=== PATIENT | male | born 1945 | race Caucasian/White ===

== ENCOUNTER 2016-10-26 10:06 | Observation (INO) | payer MEDICARE, OTHER ==
[2016-10-26] VITALS (7 sets, daily range): BP systolic 130–189; BP diastolic 78–90; PULSE 86–94; RESP 12–18; TEMP 97.8–98.1; O2SAT 96–100
[~2016-10-26] VITALS: Ht 172.7 cm; Wt 80.0 kg
[~2016-10-26 10:06] MED LIST: AMIT25TA9 PO; CLON1 PO; LEVEMIR SQ; LIPI40TA PO; METF500T PO; METO-338 PO; NOVOLOGP2 SQ; PLAV75TA29 PO; QUET1TAB10 PO; QUET1TAB9 PO; SERO100T PO; SERO300T PO; Simvastatin PO
--- NOTE | 2016-10-26 10:39 | PD ---
HPI Chief Complaint: Neuro Symptoms/ Deficits Time Seen by Provider: 10:38 Travel History International Travel<30 days: No Contact w/Intl Traveler<30days: No Traveled to known affect area: No History of Present Illness HPI 71-year-old male came to the emergency room brought by his daughter and after he became agitated and ran out of his house screaming "help help". He ended up in his neighbor's yard and his came running after him and called 911. When the police arrived and saw him they recommended that she should take him to the emergency room since he would be more cooperative that way. Patient has history of dementia and has done episodes like this multiple times. In fact he was brought in the past as Rae act as well. He was in the emergency room about 12 days ago for something similar. is saying that his episodes of these kind are getting more and more frequent lately. She has discussed these with his primary care and she was told that there is a new drug that would be coming in the market by the end of this year or beginning next there and he would be a candidate for that which should make his condition better. Patient's vital signs have been stable in the ER. He is cooperative and does not recall any of these events. His bedside blood glucose was 510. As per the he did not take any of his morning medications including his insulin and metformin. PENDING SALE TO [facility] Past Medical History Narrative Medical List of his past medical history is reviewed from the nursing note. Hx Anticoagulant Therapy: Yes (PLAVIX) Arthritis: Yes Anxiety: Yes Depression: Yes Cardiovascular Problems: Yes High Cholesterol: Yes Dementia: Yes Diabetes: Yes Patient Takes Glucophage: Yes Diminished Hearing: Yes (diminished) Hypertension: Yes Neurologic: Yes Psychiatric: Yes Tetanus Vaccination: < 5 Years Past Surgical History Joint Replacement: Yes (R SHOULDER SX) Social History Alcohol Use: No (QUIET) Tobacco Use: No Substance Use: No Allergies-Medications (Allergen,Severity, Reaction): Coded Allergies: Morphine (Verified Allergy, Unknown, SHAKING, 10/26/16) Comments List of his allergies reviewed from the nursing note. Reported Meds & Prescriptions Reported Meds & Active Scripts Active [Simvastatin ] 1 EA Ea 40 Mg PO HS Lopressor (Metoprolol Tartrate) 100 Mg Tab 100 Mg PO DAILY Plavix (Clopidogrel Bisulfate) 75 Mg Tab 75 Mg PO DAILY Klonopin (Clonazepam) 1 Mg Tab 1 Mg PO HS Levemir Inj (Insulin Detemir) 1,000 unit/ 10 ML Vial 7 Units SQ HS 30 Days Levemir Inj (Insulin Detemir) 1,000 unit/ 10 ML Vial 20 Units SQ DAILY 30 Days Reported Novolog Inj (Insulin Aspart) 1,000 Unit/10 Ml Vial 2-12 Units SQ ACHS Max dose at bedtime ( ) units; sugars less than 70,(0) units; sugars 150-199,(2) units; sugars 200-249,(4) units; sugars 250-299,(7) units; sugars 300-349,(10) units; sugars greater than 349,(12)units Amitriptyline (Amitriptyline HCl) 25 Mg Tab 25 Mg PO HS Seroquel (Quetiapine Fumarate) 300 Mg Tab 300 Mg PO HS Seroquel (Quetiapine Fumarate) 100 Mg Tab 100 Mg PO DAILY Metformin (Metformin HCl) 500 Mg Tab 500 Mg PO BIDPC With meals Narrative Medication List of his home medications reviewed from the nursing note. Review of Systems Except as stated in HPI: all other systems reviewed are Neg Physical Exam Narrative GENERAL: Awake, alert, elderly, no obvious distress, confused SKIN: Warm and dry. HEAD: Atraumatic. Normocephalic. EYES: Pupils equal and round. No scleral icterus. No injection or drainage. ENT: No nasal bleeding or discharge. Mucous membranes pink and moist. NECK: Trachea midline. No JVD. CARDIOVASCULAR: Regular rate and rhythm. No murmur appreciated. RESPIRATORY: No accessory muscle use. Clear to auscultation. Breath sounds equal bilaterally. GASTROINTESTINAL: Abdomen soft, non-tender, nondistended. Hepatic and splenic margins not palpable. MUSCULOSKELETAL: No obvious deformities. No clubbing. No cyanosis. No edema. NEUROLOGICAL: Awake and alert. Dementia. No obvious cranial nerve deficits. Motor grossly within normal limits. Normal speech. Disoriented in place and time. PSYCHIATRIC: Appropriate mood and affect; insight and judgment normal. Data Data Last Documented VS Orders Electrocardiogram (10/26/16 10:52) Alcohol (Ethanol) (10/26/16 10:52) Complete Blood Count With Diff (10/26/16 10:52) Comprehensive Metabolic Panel (10/26/16 10:52) Creatine Kinase (Cpk) (10/26/16 10:52) Prothrombin Time / Inr (Pt) (10/26/16 10:52) Act Partial Throm Time (Ptt) (10/26/16 10:52) Troponin I (10/26/16 10:52) Thyroid Stimulating Hormone (10/26/16 10:52) Urinalysis - C+S If Indicated (10/26/16 10:52) Chest, Single Ap (10/26/16 10:52) Ct Brain W/O Iv Contrast(Rout) (10/26/16 10:52) Blood Glucose (10/26/16 10:52) Ecg Monitoring (10/26/16 10:52) Iv Access Insert/Monitor (10/26/16 10:52) Oximetry (10/26/16 10:52) Sodium Chloride 0.9% Flush (Ns Flush) (10/26/16 11:00) ^ Straight Catheter (10/26/16 10:52) Sodium Chlor 0.9% 1000 Ml Inj (Ns 1000 M (10/26/16 11:15) Insulin Human Regular Inj (Novolin R Inj (10/26/16 11:15) Sodium Chlor 0.9% 1000 Ml Inj (Ns 1000 M (10/26/16 12:30) Metformin (Glucophage) (10/26/16 12:30) Place In Observation (10/26/16 ) Vital Signs (Adult) Q4H (10/26/16 12:29) Activity Oob With Assistance (10/26/16 12:29) Diet Diabetic (10/26/16 Lunch) Sodium Chlor 0.9% 1000 Ml Inj (Ns 1000 M (10/26/16 12:29) Sodium Chloride 0.9% Flush (Ns Flush) (10/26/16 12:30) Sodium Chloride 0.9% Flush (Ns Flush) (10/26/16 21:00) Acetaminophen (Tylenol) (10/26/16 12:30) Ondansetron Inj (Zofran Inj) (10/26/16 12:30) Docusate Sodium (Colace) (10/26/16 12:30) Basic Metabolic Panel (Bmp) (10/27/16 06:00) Complete Blood Count With Diff (10/27/16 06:00) Pt Request For Service (10/26/16 12:29) Case Management Consult (10/26/16 12:29) Enoxaparin Inj (Lovenox Inj) (10/26/16 14:00) Naloxone Inj (Narcan Inj) (10/26/16 12:30) Bedside Glucose GATITO.AC&HS&03 (10/26/16 12:29) ^ Blood Glucose Goal (Criteria (10/26/16 12:29) ^ Hypoglycemia 51 - 69 Mg/Dl (10/26/16 12:29) ^ Hypoglycemia 50 Mg/Dl Or < (10/26/16 12:29) ^ Notify Dr: Other (10/26/16 12:29) Dextrose 50% In Serafin (Vial) Inj (D50w (Vi (10/26/16 12:30) Glucagon Inj (Glucagon Inj) (10/26/16 12:30) Insulin Aspart Supplemtl Scale (Novolog (10/26/16 16:00) Admit Order (Ed Use Only) (10/26/16 12:36) Labs MDM Medical Decision Making Medical Screen Exam Complete: Yes Emergency Medical Condition: Yes Medical Record Reviewed: Yes Interpretation(s) Twelve-lead EKG was reviewed by me. Normal sinus rhythm, normal axis, nonspecific ST-T wave changes. Heart rate of 84 bpm. Differential Diagnosis TIA, UTI, pneumonia, electrolyte abnormalities, DKA Narrative Course 12:43 PM patient was given IV fluid bolus and 10 units of subcutaneous insulin. Blood glucose level was rechecked one hour later and it was 455. Ordered another liter of IV fluid bolus and patient's daily dose of metformin. Other than that the workup is essentially negative. Patient will be admitted for confusion/TIA and hyperglycemia. He would be a good candidate to be admitted to [facility] for the observation. I discussed this with the and she is okay with that decision. The hospitalist has accepted the patient. I also discussed with the regarding patient's long-term future plan and her comfort level of taking care of him especially doing his dementia flareup/ confusion/psychosis. Especially since the frequency has been increasing and patient is becoming a danger to himself. She understands and agrees regarding the urgency to have a meeting to discuss regarding this with patient's primary care. In my opinion family should start making plans and decision for long- term inpatient care for this gentleman. Procedures EKG Prior to Arrival: No Diagnosis Primary Impression: Hyperglycemia Additional Impressions: Dehydration Confusion TIA (transient ischemic attack) Qualified Code: G45.9 - Transient cerebral ischemia, unspecified type Dementia Qualified Code: F03.91 - Dementia with behavioral disturbance, unspecified dementia type Admitting Information Admitting Physician Requests: Observation Stu Souza MD Oct 26, 2016 10:39 Neutrophils # (Auto) 7.7 TH/MM3 Lymphocytes # (Auto) 1.1 TH/MM3 Monocytes # (Auto) 0.5 TH/MM3 Eosinophils # (Auto) 0.0 TH/MM3 Basophils # (Auto) 0.0 TH/MM3 CBC Comment DIFF FINAL Differential Comment Prothrombin Time 11.0 SEC Prothromb Time International 1.0 RATIO Ratio Activated Partial 31.0 SEC Thromboplast Time Urine Color LIGHT-YELLOW Urine Turbidity CLEAR Urine pH 5.0 Urine Specific [place] 1.011 Urine Protein NEG mg/dL Urine Glucose (UA) 1000 mg/dL Urine Ketones 10 mg/dL Urine Occult Blood NEG Urine Nitrite NEG Urine Bilirubin NEG Urine Urobilinogen LESS THAN 2.0 MG/DL Urine Leukocyte Esterase NEG Urine WBC LESS THAN 1 /hpf Urine Squamous Epithelial <1 /hpf Cells Microscopic Urinalysis Comment CATH-CULT NOT IND Sodium Level 129 MEQ/L Potassium Level 4.6 MEQ/L Chloride Level 95 MEQ/L Carbon Dioxide Level 22.2 MEQ/L Anion Gap 12 MEQ/L Blood Urea Nitrogen 22 MG/DL Creatinine 1.42 MG/DL Estimat Glomerular Filtration 49 ML/MIN Rate Random Glucose 463 MG/DL Calcium Level 9.5 MG/DL Total Bilirubin 0.5 MG/DL Aspartate Amino Transf 9 U/L (AST/SGOT) Alanine Aminotransferase 22 U/L (ALT/SGPT) Alkaline Phosphatase 100 U/L Total Creatine Kinase 50 U/L Troponin I LESS THAN 0.02 NG/ML Total Protein 8.0 GM/DL Albumin 4.0 GM/DL Thyroid Stimulating Hormone 1.940 uIU/ML 3rd Gen Ethyl Alcohol Level LESS THAN 3 MG/DL [facility] Medical Decision Making Medical Screen Exam Complete: Yes Emergency Medical Condition: Yes Medical Record Reviewed: Yes Interpretation(s) Twelve-lead EKG was reviewed by me. Normal sinus rhythm, normal axis, nonspecific ST-T wave changes. Heart rate of 84 bpm. Differential Diagnosis TIA, UTI, pneumonia, electrolyte abnormalities, DKA Narrative Course 12:43 PM patient was given IV fluid bolus and 10 units of subcutaneous insulin. Blood glucose level was rechecked one hour later and it was 455. Ordered another liter of IV fluid bolus and patient's daily dose of metformin. Other than that the workup is essentially negative. Patient will be admitted for confusion/TIA and hyperglycemia. He would be a good candidate to be admitted to [facility] for the observation. I discussed this with the and she is okay with that decision. The hospitalist has accepted the patient. I also discussed with the regarding patient's long-term future plan and her comfort level of taking care of him especially doing his dementia flareup/ confusion/psychosis. Especially since the frequency has been increasing and patient is becoming a danger to himself. She understands and agrees regarding the urgency to have a meeting to discuss regarding this with patient's primary care. In my opinion family should start making plans and decision for long- term inpatient care for this gentleman. Procedures EKG Prior to Arrival: No Diagnosis Primary Impression: Hyperglycemia Additional Impressions: Dehydration Confusion TIA (transient ischemic attack) Qualified Code: G45.9 - Transient cerebral ischemia, unspecified type Dementia Qualified Code: F03.91 - Dementia with behavioral disturbance, unspecified dementia type Admitting Information Admitting Physician Requests: Observation Stu Souza MD Oct 26, 2016 10:39 Additional Impressions: Dehydration Confusion TIA (transient ischemic attack) Qualified Code: G45.9 - Transient cerebral ischemia, unspecified type Dementia Qualified Code: F03.91 - Dementia with behavioral disturbance, unspecified dementia type Admitting Information Admitting Physician Requests: Observation Stu Souza MD Oct 26, 2016 10:39
[2016-10-26] MEDS: SODIUM CHLORIDE 0.9% FLUSH 5 ML FLUSH IVF PRN ×2 (11:00→12:19)
[2016-10-26] MEDS ORDERED: INSULIN HUMAN REGULAR 1,000 UNITS/10 ML VIAL SQ ONE (11:15)
[2016-10-26] MEDS ORDERED: SODIUM CHLOR 0.9% 1000 ML INJ 1,000 ML IV ONE ×2 (11:15→12:30)
[2016-10-26 11:25] LABS: AUTOMATED NEUTROPHIL # 7.7 TH/MM3 (1.8-7.7); BASOPHIL % 0.2 % (0.0-2.0); BLOOD, URINE NEG (NEG); EOSINOPHIL % 0.3 % (0.0-4.0); GLUCOSE,URINE 1000 mg/dL (NEG); HEMATOCRIT 42.8 % (39.0-51.0); HEMO FLAGS DIFF FINAL; KETONE, URINE 10 mg/dL (NEG); LYMPH % 11.3 % (9.0-44.0); LYMPHOCYTE # 1.1 TH/MM3 (1.0-4.8); MEAN CELL VOLUME 87.7 FL (80.0-100.0); MEAN CORPUSCULAR HEMOGLOBIN 29.1 PG (27.0-34.0); MEAN CORPUSCULAR HGB CONC 33.2 % (32.0-36.0); MONO % 5.7 % (0.0-8.0); NEUT % 82.5 % (16.0-70.0); NITRITE,URINE NEG (NEG); PLATELET COUNT 247 TH/MM3 (150-450); RED BLOOD COUNT 4.88 MIL/MM3 (4.50-5.90); RED CELL DISTRIBUTION WIDTH 12.6 % (11.6-17.2); SQUAMOUS EPITHELIAL CELL URINE <1 /hpf (0-5); URINE COLOR LIGHT-YELLOW (YELLW/STRAW); WHITE BLOOD COUNT 9.3 TH/MM3 (4.0-11.0)
[2016-10-26 11:26] LABS: COMMENT (UR) CATH-CULT NOT IND; CULTURE IF INDICATED CATH CULTURE NOT IND
--- NOTE | 2016-10-26 11:27 | RADRPT ---
EXAM DATE/TIME: 10/26/2016 11:13 [facility] COMPARISON: CT BRAIN W/O CONTRAST, October 07, 2016, 22:45. INDICATIONS : Altered mental status. RADIATION DOSE: 46.25 CTDIvol (mGy) MEDICAL HISTORY : Cardiovascular disease. Dementia. Seizures. Hypertension. Diabetes. SURGICAL HISTORY : None. ENCOUNTER: Initial ACUITY: 1 day PAIN SCALE: 0/10 LOCATION: Bilateral cranial TECHNIQUE: Multiple contiguous axial images were obtained of the head. Using automated exposure control and adj ustment of the mA and/or kV according to patient size, radiation dose was kept as low as reasonably a chievable to obtain optimal diagnostic quality images. FINDINGS: CEREBRUM: The ventricles are normal for age. No evidence of midline shift, mass lesion, hemorrhage or acute in farction. No extra-axial fluid collections are seen. Mild periventricular and subcortical white carmen er small vessel ischemic changes are noted bilaterally. POSTERIOR FOSSA: The cerebellum and brainstem are intact. The 4th ventricle is midline. The cerebellopontine angle i s unremarkable. EXTRACRANIAL: The visualized portion of the orbits is intact. SKULL: The calvaria is intact. No evidence of skull fracture. CONCLUSION: 1. Mild periventricular and subcortical white matter small vessel ischemic changes bilaterally. 2. No acute infarct, acute hemorrhage, mass effect or extra-axial fluid collections. Geronimo Birmingham MD on October 26, 2016 at 11:23 Board Certified Radiologist. This report was verified electronically.
[2016-10-26 12:11] LABS: ALKALINE PHOSPHATASE 100 U/L (45-117); ALT (GPT) 22 U/L (12-78); ANION GAP 12 MEQ/L (5-15); AST (GOT) 9 U/L (15-37); BICARBONATE 22.2 MEQ/L (21.0-32.0); BLOOD UREA NITROGEN 22 MG/DL (7-18); CHLORIDE 95 MEQ/L (98-107); GLOMERULAR FILTRATION RATE 49 ML/MIN (>89); POTASSIUM 4.6 MEQ/L (3.5-5.1); SODIUM (NA) 129 MEQ/L (136-145); TOTAL BILIRUBIN ADULT 0.5 MG/DL (0.2-1.0)
[2016-10-26 12:13] LABS: CREATINE KINASE 50 U/L (39-308)
--- NOTE | 2016-10-26 12:14 | RADRPT ---
EXAM DATE/TIME: 10/26/2016 11:39 [facility] COMPARISON: CHEST SINGLE AP, March 27, 2016, 22:26. INDICATIONS : Confusion, short of breath. MEDICAL HISTORY : None. SURGICAL HISTORY : None. ENCOUNTER: Initial ACUITY: 1 day PAIN SCORE: 0/10 LOCATION: Bilateral chest FINDINGS: A single view of the chest demonstrates the lungs to be symmetrically aerated without evidence of mas s, infiltrate or effusion. The cardiomediastinal contours are unremarkable. Osseous structures are intact. CONCLUSION: No acute disease. Jovanny Hills MD on October 26, 2016 at 12:09 Board Certified Radiologist. This report was verified electronically.
[2016-10-26] MEDS ORDERED: ACETAMINOPHEN 325 MG TAB PO PRN (12:30)
[2016-10-26] MEDS ORDERED: NALOXONE HCL 0.4 MG/ML AMP IV PRN (12:30)
[2016-10-26] MEDS ORDERED: ONDANSETRON HCL 4 MG/2 ML VIAL IVP PRN (12:30)
[2016-10-26] MEDS ORDERED: DEXTROSE 50% IN WATER 50 ML VIAL(D50) IV PUSH PRN (12:30)
[2016-10-26] MEDS ORDERED: SODIUM CHLORIDE 0.9% FLUSH 5 ML FLUSH FLUSH PRN (12:30)
[2016-10-26] MEDS ORDERED: metFORMIN HCL 500 MG TAB PO ONE (12:30)
[2016-10-26] MEDS ORDERED: GLUCAGON 1 MG/ML VIAL OTHER PRN (12:30)
[2016-10-26] MEDS: SODIUM CHLOR 0.9% 1000 ML INJ 1,000 ML IV SCH ×2 (13:33→22:29)
[2016-10-26] MEDS: INSULIN DETEMIR 100 UNITS/ML VIAL SQ SCH (13:33)
[2016-10-26] MEDS: DOCUSATE SODIUM 100 MG CAP PO SCH (13:34)
[2016-10-26] MEDS: CLOPIDOGREL 75 MG TAB PO SCH (13:34)
[2016-10-26] MEDS ORDERED: ENOXAPARIN SODIUM 40 MG/0.4 ML SYRINGE SQ SCH (14:00)
[2016-10-26] MEDS: INSULIN ASPART SUPPLEMENTAL SCALE SQ SCH ×2 (15:55→21:00)
[2016-10-26] MEDS: metFORMIN HCL 500 MG TAB PO SCH (17:11)
--- NOTE | 2016-10-26 17:44 | HHI.HP ---
HPI Service [facility] Hospitalists Primary Care Physician Jovanny Obrien MD Admission Diagnosis altered mental status, dementia, hyperglycemia Diagnoses: (1) Lewy body dementia (2) Confusion (3) Dementia (4) Hyperglycemia (5) Dementia with behavioral disturbance (6) HTN (hypertension) (7) DM (diabetes mellitus) Travel History International Travel<30 Days: No Contact w/Intl Traveler <30 Da: No Traveled to Known Affected Are: No History of Present Illness This is a 71-year-old male with past medical history of dementia with frequent psychiatric hospitalizations over the past 2 years, and type 2 diabetes who presents to the ER after his states that he left their house was using the shower this morning and was out walking around their neighborhood. Apparently the patient was agitated last night and was not sleeping well and stating over and over again that they were "inside a warehouse and we need to get out." The patient refused to take his insulin this morning. The , and the shower and then was going to try to get him his insulin again. When she got out of the shower he had left the house. She then drove around the neighborhood until she found him. Apparently he did not recognize her and started to walk in between 2 buildings near a [place]. She was afraid he would fall into the leg. As noted in his record and per conversation with his , he has had numerous admissions to psychiatry over the past 2 years however these have been becoming more frequent. The initially resisted him going to a nursing facility however she has begun preparing for that now. She states she is waiting for his Medicaid to kick in before she can have him placed. She has 2 daughters in the area who are also assisting her. Also home health care has been coming to the house. Patient's states that he did take all of his other medications last night. In the ER his blood side glucose was 500 and so the ER physician requested observation. The [facility] the [facility]. The patient himself does not remember any of the events this morning. He has obvious difficulty word finding and is disoriented as to place. He is unable to tell me the month or day of week. Review of Systems ROS Limitations: Altered Mental Status (further review of systems not obtainable unreliable secondary to the patient's dementia) Past Family Social History Past Medical History diabetes mellitus HTN HLD osteoarthritis dementia hearing loss CAD Past Surgical History Left shoulder replacement Cataract surgery Allergies: Coded Allergies: Morphine (Verified Allergy, Unknown, SHAKING, 10/26/16) Family History Reviewed and noncontributory Social History No current alcohol tobacco or drug use Physical Exam Vital Signs Vital Signs Date Time Temp Pulse Resp B/P Pulse Ox O2 Delivery O2 Flow Rate FiO2 10/26/16 15:56 98.1 76 18 130/78 99 10/26/16 12:23 97.8 92 17 175/82 100 Room Air 10/26/16 10:56 17 98 Room Air 10/26/16 10:35 86 18 167/79 98 Room Air 10/26/16 10:30 85 17 98 Room Air 10/26/16 10:07 98.1 94 12 179/83 96 Room Air Physical Exam GENERAL: Well-nourished, well-developed pleasant elderly male patient with dementia. Appears in good physical form. SKIN: Warm and dry. HEAD: Normocephalic. EYES: No scleral icterus. No injection or drainage. NECK: Supple, trachea midline. No JVD or lymphadenopathy. CARDIOVASCULAR: Regular rate and rhythm without murmurs, gallops, or rubs. RESPIRATORY: Breath sounds equal bilaterally. No accessory muscle use. GASTROINTESTINAL: Abdomen soft, non-tender, nondistended. EXTREMITIES: No cyanosis, or edema. NEUROLOGICAL: Awake, alert. Oriented only to self. Unable to tell me the events of the morning. Unable to tell me date. Positive confabulation. Laboratory Laboratory Tests Test 10/26/16 11:00 White Blood Count 9.3 Red Blood Count 4.88 Hemoglobin 14.2 Hematocrit 42.8 Mean Corpuscular Volume 87.7 Mean Corpuscular Hemoglobin 29.1 Mean Corpuscular Hemoglobin 33.2 Concent Red Cell Distribution Width 12.6 Platelet Count 247 Mean Platelet Volume 8.8 Neutrophils (%) (Auto) 82.5 Lymphocytes (%) (Auto) 11.3 Monocytes (%) (Auto) 5.7 Eosinophils (%) (Auto) 0.3 Basophils (%) (Auto) 0.2 Neutrophils # (Auto) 7.7 Lymphocytes # (Auto) 1.1 Monocytes # (Auto) 0.5 Eosinophils # (Auto) 0.0 Basophils # (Auto) 0.0 CBC Comment DIFF FINAL Differential Comment Prothrombin Time 11.0 Prothromb Time International 1.0 Ratio Activated Partial 31.0 Thromboplast Time Urine Color LIGHT-YELLOW Urine Turbidity CLEAR Urine pH 5.0 Urine Specific [place] 1.011 Urine Protein NEG Urine Glucose (UA) 1000 Urine Ketones 10 Urine Occult Blood NEG Urine Nitrite NEG Urine Bilirubin NEG Urine Urobilinogen LESS THAN 2.0 Urine Leukocyte Esterase NEG Urine WBC LESS THAN 1 Urine Squamous Epithelial <1 Cells Microscopic Urinalysis Comment CATH-CULT NOT IND Sodium Level 129 Potassium Level 4.6 Chloride Level 95 Carbon Dioxide Level 22.2 Anion Gap 12 Blood Urea Nitrogen 22 Creatinine 1.42 Estimat Glomerular Filtration 49 Rate Random Glucose 463 Calcium Level 9.5 Total Bilirubin 0.5 Aspartate Amino Transf 9 (AST/SGOT) Alanine Aminotransferase 22 (ALT/SGPT) Alkaline Phosphatase 100 Total Creatine Kinase 50 Troponin I LESS THAN 0.02 Total Protein 8.0 Albumin 4.0 Thyroid Stimulating Hormone 1.940 3rd Gen Ethyl Alcohol Level LESS THAN 3 Result Diagram: 10/26/16 1100 10/26/16 1100 Assessment and Plan Assessment and Plan dementia with behavioral disturbance. These have been becoming more more frequent as per the patient's . Previously she was resistant to him going to a nursing facility but now is open to that however is waiting for his Medicaid to kick in. We will observe him overnight and will ask case management to discuss future placement options with the patient's . The patient currently has a sitter and is very calm and cooperative. We will continue the rest of his psych medications. He has had both neurology and psychiatric evaluations in the recent past. diabetes mellitus type II with hyperglycemia secondary to the patient refusing his insulin shot this morning. Glucose is now 132 after receiving his dose of Lantus. We'll continue with home Lantus regimen as well as sliding scale insulin with Accu-Cheks. Mild acute kidney injury. We'll treat with IV fluids overnight. We will resume the rest of his home medications as appropriate. DVT prophylaxis will be initiated. hearing loss CAD Problem Qualifiers (1) Dementia: Qualified Code: F03.91 - Dementia with behavioral disturbance, unspecified dementia type Ria,Amy Temi MD Oct 26, 2016 17:44
[2016-10-26] MEDS ORDERED: QUEtiapine FUMARATE 300 MG TAB PO SCH (21:00)
[2016-10-26] MEDS ORDERED: clonazePAM 1 MG TAB PO SCH ×2 (21:00)
[2016-10-26] MEDS ORDERED: AMITRIPTYLINE HCL 25 MG TAB PO SCH (21:00)
[2016-10-26] MEDS ORDERED: PRAVASTATIN SOD 80 MG TAB PO SCH (21:00)
[2016-10-26] MEDS ORDERED: INSULIN DETEMIR 100 UNITS/ML VIAL SQ SCH ×2 (21:00)
[2016-10-26] MEDS ORDERED: clonazePAM 1 MG TAB PO PRN (21:30)
[2016-10-26] MEDS: SODIUM CHLORIDE 0.9% FLUSH 5 ML FLUSH FLUSH SCH (22:05)
[2016-10-27] VITALS: BP 108/65; PULSE 65; RESP 16; TEMP 98.2; O2SAT 93
[2016-10-27] MEDS: DOCUSATE SODIUM 100 MG CAP PO SCH ×2 (00:30→12:09)
[2016-10-27 05:38] LABS: AUTOMATED NEUTROPHIL # 2.6 TH/MM3 (1.8-7.7); BASOPHIL # 0.1 TH/MM3 (0-0.2); BASOPHIL % 1.1 % (0.0-2.0); EOSINOPHIL # 0.3 TH/MM3 (0-0.4); EOSINOPHIL % 4.5 % (0.0-4.0); HEMATOCRIT 37.3 % (39.0-51.0); HEMO FLAGS DIFF FINAL; LYMPH % 37.9 % (9.0-44.0); LYMPHOCYTE # 2.2 TH/MM3 (1.0-4.8); MEAN CELL VOLUME 87.6 FL (80.0-100.0); MEAN CORPUSCULAR HEMOGLOBIN 28.8 PG (27.0-34.0); MEAN CORPUSCULAR HGB CONC 32.9 % (32.0-36.0); MONO % 10.7 % (0.0-8.0); NEUT % 45.8 % (16.0-70.0); PLATELET COUNT 239 TH/MM3 (150-450); RED BLOOD COUNT 4.25 MIL/MM3 (4.50-5.90); RED CELL DISTRIBUTION WIDTH 12.3 % (11.6-17.2); WHITE BLOOD COUNT 5.8 TH/MM3 (4.0-11.0)
[2016-10-27 05:42] LABS: POTASSIUM 3.6 MEQ/L (3.5-5.1)
[2016-10-27 05:46] LABS: BICARBONATE 26.1 MEQ/L (21.0-32.0)
[2016-10-27] MEDS: INSULIN ASPART SUPPLEMENTAL SCALE SQ SCH ×3 (05:52→12:09)
[2016-10-27] MEDS ORDERED: METOPROLOL TARTRATE 100 MG TAB PO SCH (09:00)
[2016-10-27] MEDS ORDERED: INSULIN DETEMIR 100 UNITS/ML VIAL SQ SCH (09:00)
[2016-10-27] MEDS: SODIUM CHLORIDE 0.9% FLUSH 5 ML FLUSH FLUSH SCH (09:00)
[2016-10-27] MEDS ORDERED: QUEtiapine FUMARATE 100 MG TAB PO SCH (09:00)
[2016-10-27 09:15] VITALS: BP 133/77; PULSE 90; RESP 16; TEMP 96.9; O2SAT 100
[2016-10-27] MEDS: CLOPIDOGREL 75 MG TAB PO SCH (09:17)
[2016-10-27] MEDS: metFORMIN HCL 500 MG TAB PO SCH (09:17)
[2016-10-27] MEDS: INSULIN DETEMIR 100 UNITS/ML VIAL SQ SCH (09:17)
[2016-10-27] MEDS: SODIUM CHLOR 0.9% 1000 ML INJ 1,000 ML IV SCH (09:18)
--- NOTE | 2016-10-27 11:41 | HHI.PR ---
Subjective Remarks Patient seen and evaluated in follow-up for dementia with acute behavioral disturbance. Overall at baseline today. Blood sugar and acute kidney injury are resolved. Hypernatremia resolved. Patient will be discharged home today Objective Vitals Vital Signs Date Time Temp Pulse Resp B/P Pulse Ox O2 Delivery O2 Flow Rate FiO2 10/27/16 09:15 96.9 90 16 133/77 100 10/27/16 00:00 98.2 65 16 108/65 93 10/26/16 20:00 98.1 89 18 183/87 100 10/26/16 17:00 97.9 90 18 189/90 97 10/26/16 15:56 98.1 76 18 130/78 99 10/26/16 12:23 97.8 92 17 175/82 100 Room Air I/O 10/26/16 10/26/16 10/26/16 10/27/16 10/27/16 10/27/16 07:00 15:00 23:00 07:00 15:00 23:00 Intake Total 180 ml 960 ml 360 ml Output Total 1600 ml Balance -1420 ml 960 ml 360 ml Intake Oral 180 ml 240 ml 360 ml IV Total 720 ml Output Urine Total 1600 ml # Voids 3 2 # Bowel Movements 0 0 Result Diagram: 10/27/1615 10/27/16 0515 Imaging Last Impressions Head CT 10/26/16 1052 Signed Impressions: Service Date/Time: Wednesday, October 26, 2016 11:13 - CONCLUSION: 1. Mild periventricular and subcortical white matter small vessel ischemic changes bilaterally. 2. No acute infarct, acute hemorrhage, mass effect or extra- axial fluid collections. Geronimo Birmingham MD Chest X-Ray 10/26/16 1052 Signed Impressions: Service Date/Time: Wednesday, October 26, 2016 11:39 - CONCLUSION: No acute disease. Jovanny Hills MD Objective Remarks GENERAL: This is a well-nourished, well-developed patient, in no apparent distress. CARDIOVASCULAR: Regular rate and rhythm without murmurs, gallops, or rubs. RESPIRATORY: Clear to auscultation. Breath sounds equal bilaterally. No wheezes , rales, or rhonchi. GASTROINTESTINAL: Abdomen soft, non-tender, nondistended. Normal active bowel sounds MUSCULOSKELETAL: Extremities without clubbing, cyanosis, or edema. NEURO: Alert & Oriented x4 to person, call with sitter A/P Problem List: (1) Dementia ICD Code: F03.90 Status: Acute Plan: with agitation, better today (2) DM (diabetes mellitus) ICD Code: E11.9 Status: Chronic Plan: Hyperglycemia resolved. Patient cooperative with medications (3) Acute kidney injury ICD Code: N17.9 Status: Acute Plan: Resolved with IV fluids Discharge Planning d/ c home ADA diet oob ad laith Problem Qualifiers (1) Dementia: Qualified Code: F03.91 - Dementia with behavioral disturbance, unspecified dementia type Vonnie Khanna MD Oct 27, 2016 11:41
--- NOTE | 2016-10-27 13:54 | EKG ---
Date Performed: 10/26/2016 Time Performed: 11:04:40 PTAGE: 71 years EKG: Sinus rhythm NORMAL ECG NO PREVIOUS TRACING DOCTOR: Juan Alfonso Interpretating Date/Time 10/27/2016 13:53:14
== END 2016-10-27 12:37 | disposition home or self-care (01) ==
LOC: NEPA 10:06 → NEDA 12:37 → PH3B 16:22
PROVIDERS: ADMIT Hospitalist; ATTEND Hospitalist
DX: F03.91 Unspecified dementia, unspecified severity, with behavioral disturbance (principal); E11.65 Type 2 diabetes mellitus with hyperglycemia; E86.0 Dehydration; G31.83 Neurocognitive disorder with Lewy bodies; F02.81 Dementia in other diseases classified elsewhere, unspecified severity, with behavioral disturbance; R41.0 Disorientation, unspecified; G45.9 Transient cerebral ischemic attack, unspecified; N17.9 Acute kidney failure, unspecified; I10 Essential (primary) hypertension; I25.10 Atherosclerotic heart disease of native coronary artery without angina pectoris; M19.90 Unspecified osteoarthritis, unspecified site; F41.9 Anxiety disorder, unspecified; Z79.01 Long term (current) use of anticoagulants
CPT/HCPCS: 70450; 71010; 80048; 80053; 80320; 81001; 82550; 82948; 84443; 84484; 85025; 85610; 85730; 93005; 96360; 96372; 97162; 99285; G0378; G8987; G8988; J1650; J1815; J7030

== ENCOUNTER 2018-06-26 12:34 | Inpatient (IN) ==
[2018-06-26] MEDS ORDERED: Haloperidol Inj 5 MG/ML Ampul IM ONE (12:42)
[2018-06-26 13:39] LABS: Baso % (Auto) 0.3 % (0.0-2.0); Eos % (Auto) 0.1 % (0.0-4.0); Hematocrit 46.4 % (39.0-51.0); Hemoglobin 15.4 gm/dL (13.0-17.0); Lymph # (Auto) 1.4 th/mm3 (1.0-4.8); Lymph % (Auto) 14.3 % (9.0-44.0); Mean Corpuscular HGB Conc 33.1 % (32.0-36.0); Mean Corpuscular Hemoglobin 29.1 pg (27.0-34.0); Mean Platelet Volume 8.2 fL (7.0-11.0); Mono # (Auto) 0.8 th/mm3 (0.0-0.9); Mono % (Auto) 8.4 % (0.0-8.0); Neut # (Auto) 7.4 th/mm3 (1.8-7.7); Neut % (Auto) 76.9 % (16.0-70.0); Platelet Count 267 th/mm3 (150-450); Red Blood Count 5.28 mil/mm3 (4.50-5.90); Red Cell Distribution Width 13.5 % (11.6-17.2); White Blood Count 9.6 th/mm3 (4.0-11.0)
[2018-06-26 13:48] LABS: Alanine Aminotransferase 27 U/L (12-78); Albumin 4.2 g/dL (3.4-5.0); Anion Gap 15 meq/L (5-15); Aspartate Aminotransferase 20 U/L (15-37); Blood Urea Nitrogen 32 mg/dL (7-18); Calcium 9.4 mg/dL (8.5-10.1); Carbon Dioxide 17.9 meq/L (21.0-32.0); Chloride 106 meq/L (98-107); Glomerular Filtration Rate 34 mL/min (>89); Glucose,Random 321 mg/dL (74-106); Potassium 4.7 meq/L (3.5-5.1); Sodium 139 meq/L (136-145)
[2018-06-26 13:58] LABS: Alkaline Phosphatase 91 U/L (45-117); Total Protein 8.3 g/dL (6.4-8.2)
--- NOTE | 2018-06-26 15:37 | ED ---
HPI General Chief Complaint: Psychiatric Symptoms Stated Complaint: Psych eval / Transport SMA Time Seen by Provider: 06/26/18 12:42 Source: patient and other (Transfer person from [facility]) Mode of arrival: ambulatory Limitations: no limitations History of Present Illness HPI Narrative: 73-year-old male was brought to the ED from [facility]. Patient presented to [facility] with severe agitation and combative. Patient was transferred to ED for evaluation. Unable to obtain any past medical history, family history social history or list of medication. Patient with mild renal insufficiency. Patient has elevated glucose. Since patient's not eating drinking anything at this point I will not treat the blood sugar this point. complaint: other (Patient's agitation, combative.) Onset (ago): unknown Duration: constant Relieving factors: none Exacerbating factors: none Associated psychiatric symptoms: none Associated symptoms: denies other symptoms Treatments prior to arrival: none Related Data Previous Rx's Medication Instructions Recorded insulin detemir U-100 [Levemir 50 unit SUB-Q HS 30 Days #15 ml 07/08/18 U-100 Insulin] lamotrigine [Lamictal] 25 mg PO DAILY 30 Days #30 tab 07/08/18 metoprolol succinate 25 mg PO HS 30 Days #30 tab 07/08/18 quetiapine 50 mg PO DAILY@08,12,18 30 Days 07/08/18 #180 tab quetiapine 100 mg PO HS 30 Days #30 tab 07/08/18 tamsulosin 0.4 mg PO HS 30 Days #30 cap 07/08/18 Allergies Allergy/AdvReac Type Severity Reaction Status Date / Time morphine Allergy Severe SHAKING Verified 06/26/18 16:46 Review of Systems ROS: all other systems reviewed are negative PMFSH Medical History Medical History Diabetes (Acute) Hypertension (Acute) Social History Social History Substance History: No History of Abuse Second Hand Smoke Exposure: No Smoking Status: Refused to answer How Often Do You Have a Drink Containing Alcohol: Unable to Obtain Immunization History Tetanus Immunization: Unsure Exam Narrative Exam Narrative: GENERAL: Well-nourished, well-developed patient. SKIN: Focused skin assessment warm/dry. HEAD: Normocephalic. EYES: No scleral icterus. No injection or drainage. NECK: Supple, trachea midline. No JVD or lymphadenopathy. CARDIOVASCULAR: Regular rate and rhythm without murmurs, gallops, or rubs. RESPIRATORY: Breath sounds equal bilaterally. No accessory muscle use. GASTROINTESTINAL: Abdomen soft, non-tender, nondistended. MUSCULOSKELETAL: No cyanosis, or edema. BACK: Nontender without obvious deformity. No CVA tenderness. Neurologic exam: Patient is combative and agitated. Patient moves all extremity well. No obvious focal neurological deficit. Course Initial Documented Vital Signs Temperature 98.0 F 06/26/18 12:59 Respiratory Rate 18 06/26/18 12:59 Blood Pressure 164/67 H 06/26/18 12:59 Pulse Oximetry 97 06/26/18 12:59 Last Documented Vital Signs Temperature 98.2 F 07/08/18 06:15 Pulse Rate 66 07/08/18 06:15 Respiratory Rate 16 07/08/18 06:15 Blood Pressure 156/78 H 07/08/18 06:15 Pulse Oximetry 98 07/08/18 06:15 Medical Decision Making MDM Narrative Medical decision making narrative: 73-year-old male was brought to emergency room from [facility] for agitation and combative behavior. Haldol 5 mg IM given. Ativan 2 mg IM 2 given. Patient was put on soft restraint. 1536 PM. Patient is medically clear for psychiatric evaluation. Medical Screen Exam Complete: Yes Emergency Medical Condition: Yes Differential Diagnosis Differential Diagnosis: Differential diagnosis including psychosis, schizophrenia, electrolyte imbalance, dementia, delirium. Lab Data Lab results reviewed: Yes I reviewed the patient's lab results. Result diagrams: 06/26/18 13:00 06/28/18 07:35 Lab Results 06/26/18 06/26/18 06/26/18 Range/Units 13:00 13:00 20:51 WBC 9.6 (4.0-11.0) th/mm3 RBC 5.28 (4.50-5.90) mil/mm3 Hgb 15.4 (13.0-17.0) gm/dL Hct 46.4 (39.0-51.0) % MCV 88.0 (80.0-100.0) fL MCH 29.1 (27.0-34.0) pg MCHC 33.1 (32.0-36.0) % RDW 13.5 (11.6-17.2) % Plt Count 267 (150-450) th/mm3 MPV 8.2 (7.0-11.0) fL Neut % (Auto) 76.9 H (16.0-70.0) % Lymph % (Auto) 14.3 (9.0-44.0) % [place]linger % (Auto) 8.4 H (0.0-8.0) % Eos % (Auto) 0.1 (0.0-4.0) % Baso % (Auto) 0.3 (0.0-2.0) % Neut # (Auto) 7.4 (1.8-7.7) th/mm3 Lymph # (Auto) 1.4 (1.0-4.8) th/mm3 [place]linger # (Auto) 0.8 (0.0-0.9) th/mm3 Eos # (Auto) 0.0 (0.0-0.4) th/mm3 Baso # (Auto) 0.0 (0.0-0.2) th/mm3 WBC Differential . Differential Comment Auto diff final Hemoglobin A Hemoglobin A2 Hemoglobin F () Hgb A2/F Interpret Hemoglobin Variant 2 Hemoglobin Variant 3 Hemoglobin Variant % Sodium 139 (136-145) meq/L Potassium 4.7 (3.5-5.1) meq/L Chloride 106 (98-107) meq/L Carbon Dioxide 17.9 L (21.0-32.0) meq/L Anion Gap 15 (5-15) meq/L BUN 32 H (7-18) mg/dL Creatinine 1.93 H (0.60-1.30) mg/dL Estimated GFR 34 L (>89) mL/min POC Glucose 467 H* (68-110) mg/dl Random Glucose 321 H (74-106) mg/dL Hemoglobin A1c (4.3-6.0) % Calcium 9.4 (8.5-10.1) mg/dL Total Bilirubin 0.5 (0.2-1.0) mg/dL AST 20 (15-37) U/L ALT 27 (12-78) U/L Alkaline Phosphatase 91 (45-117) U/L Total Protein 8.3 H (6.4-8.2) g/dL Albumin 4.2 (3.4-5.0) g/dL Triglycerides (42-150) mg/dL Cholesterol (120-200) mg/dL LDL Cholesterol, Calc (0-99) mg/dL HDL Cholesterol (40.0-60.0) mg/dL Cholesterol/HDL Ratio Ratio TSH 1.880 (0.358-3.740) uIU/mL Urine Color (Yellw/Straw) Urine Clarity (Clear) Urine pH (5.0-8.5) Ur Specific [place] (1.002-1.035) Urine Protein (Neg-Trace) mg/dL Urine Glucose (UA) (Negative) mg/dL Urine Ketones (Negative) mg/dL Urine Occult Blood (Negative) Urine Nitrate (Negative) Urine Bilirubin (Negative) Urine Urobilinogen (Less than 2) mg/dL Ur Leukocyte Esterase (Negative) Urine RBC (0-3) /hpf Urine WBC (0-5) /hpf Ur Squamous Epith Cells (0-5) /hpf Urine Bacteria (None) /hpf Urine Mucus (Occasional) /lpf Micro UA Comment Ur Microscopic Review Urine Culture Comments 06/27/18 06/27/18 06/27/18 Range/Units 06:28 07:32 07:52 WBC (4.0-11.0) th/mm3 RBC (4.50-5.90) mil/mm3 Hgb (13.0-17.0) gm/dL Hct (39.0-51.0) % MCV (80.0-100.0) fL MCH (27.0-34.0) pg MCHC (32.0-36.0) % RDW (11.6-17.2) % Plt Count (150-450) th/mm3 MPV (7.0-11.0) fL Neut % (Auto) (16.0-70.0) % Lymph % (Auto) (9.0-44.0) % [place]linger % (Auto) (0.0-8.0) % Eos % (Auto) (0.0-4.0) % Baso % (Auto) (0.0-2.0) % Neut # (Auto) (1.8-7.7) th/mm3 Lymph # (Auto) (1.0-4.8) th/mm3 Bollinger # (Auto) (0.0-0.9) th/mm3 Eos # (Auto) (0.0-0.4) th/mm3 Baso # (Auto) (0.0-0.2) th/mm3 WBC Differential Differential Comment Hemoglobin A Cancelled Hemoglobin A2 Cancelled Hemoglobin F () Cancelled Hgb A2/F Interpret Cancelled Hemoglobin Variant 2 Cancelled Hemoglobin Variant 3 Cancelled Hemoglobin Variant % Cancelled Sodium 138 (136-145) meq/L Potassium 4.3 (3.5-5.1) meq/L Chloride 105 (98-107) meq/L Carbon Dioxide 21.3 (21.0-32.0) meq/L Anion Gap 12 (5-15) meq/L BUN 36 H (7-18) mg/dL Creatinine 1.88 H (0.60-1.30) mg/dL Estimated GFR 35 L (>89) mL/min POC Glucose 209 H (68-110) mg/dl Random Glucose 186 H D (74-106) mg/dL Hemoglobin A1c (4.3-6.0) % Calcium 9.7 (8.5-10.1) mg/dL Total Bilirubin (0.2-1.0) mg/dL AST (15-37) U/L ALT (12-78) U/L Alkaline Phosphatase (45-117) U/L Total Protein (6.4-8.2) g/dL Albumin (3.4-5.0) g/dL Triglycerides 147 (42-150) mg/dL Cholesterol 182 (120-200) mg/dL LDL Cholesterol, Calc 117 H (0-99) mg/dL HDL Cholesterol 35.3 L (40.0-60.0) mg/dL Cholesterol/HDL Ratio 5.15 Ratio TSH (0.358-3.740) uIU/mL Urine Color (Yellw/Straw) Urine Clarity (Clear) Urine pH (5.0-8.5) Ur Specific [place] (1.002-1.035) Urine Protein (Neg-Trace) mg/dL Urine Glucose (UA) (Negative) mg/dL Urine Ketones (Negative) mg/dL Urine Occult Blood (Negative) Urine Nitrate (Negative) Urine Bilirubin (Negative) Urine Urobilinogen (Less than 2) mg/dL Ur Leukocyte Esterase (Negative) Urine RBC (0-3) /hpf Urine WBC (0-5) /hpf Ur Squamous Epith Cells (0-5) /hpf Urine Bacteria (None) /hpf Urine Mucus (Occasional) /lpf Micro UA Comment Ur Microscopic Review Urine Culture Comments 06/27/18 06/27/18 06/27/18 Range/Units 07:52 15:59 17:30 WBC (4.0-11.0) th/mm3 RBC (4.50-5.90) mil/mm3 Hgb (13.0-17.0) gm/dL Hct (39.0-51.0) % MCV (80.0-100.0) fL MCH (27.0-34.0) pg MCHC (32.0-36.0) % RDW (11.6-17.2) % Plt Count (150-450) th/mm3 MPV (7.0-11.0) fL Neut % (Auto) (16.0-70.0) % Lymph % (Auto) (9.0-44.0) % Bollinger % (Auto) (0.0-8.0) % Eos % (Auto) (0.0-4.0) % Baso % (Auto) (0.0-2.0) % Neut # (Auto) (1.8-7.7) th/mm3 Lymph # (Auto) (1.0-4.8) th/mm3 Bollinger # (Auto) (0.0-0.9) th/mm3 Eos # (Auto) (0.0-0.4) th/mm3 Baso # (Auto) (0.0-0.2) th/mm3 WBC Differential Differential Comment Hemoglobin A Hemoglobin A2 Hemoglobin F () Hgb A2/F Interpret Hemoglobin Variant 2 Hemoglobin Variant 3 Hemoglobin Variant % Sodium (136-145) meq/L Potassium (3.5-5.1) meq/L Chloride (98-107) meq/L Carbon Dioxide (21.0-32.0) meq/L Anion Gap (5-15) meq/L BUN (7-18) mg/dL Creatinine (0.60-1.30) mg/dL Estimated GFR (>89) mL/min POC Glucose 141 H (68-110) mg/dl Random Glucose (74-106) mg/dL Hemoglobin A1c 9.6 H (4.3-6.0) % Calcium (8.5-10.1) mg/dL Total Bilirubin (0.2-1.0) mg/dL AST (15-37) U/L ALT (12-78) U/L Alkaline Phosphatase (45-117) U/L Total Protein (6.4-8.2) g/dL Albumin (3.4-5.0) g/dL Triglycerides (42-150) mg/dL Cholesterol (120-200) mg/dL LDL Cholesterol, Calc (0-99) mg/dL HDL Cholesterol (40.0-60.0) mg/dL Cholesterol/HDL Ratio Ratio TSH (0.358-3.740) uIU/mL Urine Color Karen H (Yellw/Straw) Urine Clarity Cloudy H (Clear) Urine pH 5.0 (5.0-8.5) Ur Specific [place] 1.021 (1.002-1.035) Urine Protein 30 H (Neg-Trace) mg/dL Urine Glucose (UA) 500 or greater (Negative) mg/dL Urine Ketones Trace H (Negative) mg/dL Urine Occult Blood Large H (Negative) Urine Nitrate Negative (Negative) Urine Bilirubin Negative (Negative) Urine Urobilinogen Less than 2 (Less than 2) mg/dL Ur Leukocyte Esterase Negative (Negative) Urine RBC (0-3) /hpf Urine WBC 23 H (0-5) /hpf Ur Squamous Epith Cells 2 (0-5) /hpf Urine Bacteria Occasional H (None) /hpf Urine Mucus Few H (Occasional) /lpf Micro UA Comment Culture indicated Ur Microscopic Review Not Reportable Urine Culture Comments Culture indicated 06/27/18 06/27/18 06/27/18 Range/Units 20:45 20:58 21:24 WBC (4.0-11.0) th/mm3 RBC (4.50-5.90) mil/mm3 Hgb (13.0-17.0) gm/dL Hct (39.0-51.0) % MCV (80.0-100.0) fL MCH (27.0-34.0) pg MCHC (32.0-36.0) % RDW (11.6-17.2) % Plt Count (150-450) th/mm3 MPV (7.0-11.0) fL Neut % (Auto) (16.0-70.0) % Lymph % (Auto) (9.0-44.0) % Bollinger % (Auto) (0.0-8.0) % Eos % (Auto) (0.0-4.0) % Baso % (Auto) (0.0-2.0) % Neut # (Auto) (1.8-7.7) th/mm3 Lymph # (Auto) (1.0-4.8) th/mm3 Bollinger # (Auto) (0.0-0.9) th/mm3 Eos # (Auto) (0.0-0.4) th/mm3 Baso # (Auto) (0.0-0.2) th/mm3 WBC Differential Differential Comment Hemoglobin A Hemoglobin A2 Hemoglobin F () Hgb A2/F Interpret Hemoglobin Variant 2 Hemoglobin Variant 3 Hemoglobin Variant % Sodium (136-145) meq/L Potassium (3.5-5.1) meq/L Chloride (98-107) meq/L Carbon Dioxide (21.0-32.0) meq/L Anion Gap (5-15) meq/L BUN (7-18) mg/dL Creatinine (0.60-1.30) mg/dL Estimated GFR (>89) mL/min POC Glucose 58 L 55 L 72 (68-110) mg/dl Random Glucose (74-106) mg/dL Hemoglobin A1c (4.3-6.0) % Calcium (8.5-10.1) mg/dL Total Bilirubin (0.2-1.0) mg/dL AST (15-37) U/L ALT (12-78) U/L Alkaline Phosphatase (45-117) U/L Total Protein (6.4-8.2) g/dL Albumin (3.4-5.0) g/dL Triglycerides (42-150) mg/dL Cholesterol (120-200) mg/dL LDL Cholesterol, Calc (0-99) mg/dL HDL Cholesterol (40.0-60.0) mg/dL Cholesterol/HDL Ratio Ratio TSH (0.358-3.740) uIU/mL Urine Color (Yellw/Straw) Urine Clarity (Clear) Urine pH (5.0-8.5) Ur Specific [place] (1.002-1.035) Urine Protein (Neg-Trace) mg/dL Urine Glucose (UA) (Negative) mg/dL Urine Ketones (Negative) mg/dL Urine Occult Blood (Negative) Urine Nitrate (Negative) Urine Bilirubin (Negative) Urine Urobilinogen (Less than 2) mg/dL Ur Leukocyte Esterase (Negative) Urine RBC (0-3) /hpf Urine WBC (0-5) /hpf Ur Squamous Epith Cells (0-5) /hpf Urine Bacteria (None) /hpf Urine Mucus (Occasional) /lpf Micro UA Comment Ur Microscopic Review Urine Culture Comments 06/28/18 06/28/18 06/28/18 Range/Units 05:39 07:35 07:59 WBC (4.0-11.0) th/mm3 RBC (4.50-5.90) mil/mm3 Hgb (13.0-17.0) gm/dL Hct (39.0-51.0) % MCV (80.0-100.0) fL MCH (27.0-34.0) pg MCHC (32.0-36.0) % RDW (11.6-17.2) % Plt Count (150-450) th/mm3 MPV (7.0-11.0) fL Neut % (Auto) (16.0-70.0) % Lymph % (Auto) (9.0-44.0) % [place] % (Auto) (0.0-8.0) % Eos % (Auto) (0.0-4.0) % Baso % (Auto) (0.0-2.0) % Neut # (Auto) (1.8-7.7) th/mm3 Lymph # (Auto) (1.0-4.8) th/mm3 [place]linger # (Auto) (0.0-0.9) th/mm3 Eos # (Auto) (0.0-0.4) th/mm3 Baso # (Auto) (0.0-0.2) th/mm3 WBC Differential Differential Comment Hemoglobin A Hemoglobin A2 Hemoglobin F () Hgb A2/F Interpret Hemoglobin Variant 2 Hemoglobin Variant 3 Hemoglobin Variant % Sodium 144 (136-145) meq/L Potassium 3.6 (3.5-5.1) meq/L Chloride 110 H (98-107) meq/L Carbon Dioxide 23.0 (21.0-32.0) meq/L Anion Gap 11 (5-15) meq/L BUN 26 H (7-18) mg/dL Creatinine 1.21 (0.60-1.30) mg/dL Estimated GFR 59 L (>89) mL/min POC Glucose 106 101 (68-110) mg/dl Random Glucose 91 (74-106) mg/dL Hemoglobin A1c (4.3-6.0) % Calcium 9.0 (8.5-10.1) mg/dL Total Bilirubin (0.2-1.0) mg/dL AST (15-37) U/L ALT (12-78) U/L Alkaline Phosphatase (45-117) U/L Total Protein (6.4-8.2) g/dL Albumin (3.4-5.0) g/dL Triglycerides (42-150) mg/dL Cholesterol (120-200) mg/dL LDL Cholesterol, Calc (0-99) mg/dL HDL Cholesterol (40.0-60.0) mg/dL Cholesterol/HDL Ratio Ratio TSH (0.358-3.740) uIU/mL Urine Color (Yellw/Straw) Urine Clarity (Clear) Urine pH (5.0-8.5) Ur Specific [place] (1.002-1.035) Urine Protein (Neg-Trace) mg/dL Urine Glucose (UA) (Negative) mg/dL Urine Ketones (Negative) mg/dL Urine Occult Blood (Negative) Urine Nitrate (Negative) Urine Bilirubin (Negative) Urine Urobilinogen (Less than 2) mg/dL Ur Leukocyte Esterase (Negative) Urine RBC (0-3) /hpf Urine WBC (0-5) /hpf Ur Squamous Epith Cells (0-5) /hpf Urine Bacteria (None) /hpf Urine Mucus (Occasional) /lpf Micro UA Comment Ur Microscopic Review Urine Culture Comments 06/28/18 06/28/18 06/28/18 Range/Units 11:37 16:26 20:14 WBC (4.0-11.0) th/mm3 RBC (4.50-5.90) mil/mm3 Hgb (13.0-17.0) gm/dL Hct (39.0-51.0) % MCV (80.0-100.0) fL MCH (27.0-34.0) pg MCHC (32.0-36.0) % RDW (11.6-17.2) % Plt Count (150-450) th/mm3 MPV (7.0-11.0) fL Neut % (Auto) (16.0-70.0) % Lymph % (Auto) (9.0-44.0) % [place] % (Auto) (0.0-8.0) % Eos % (Auto) (0.0-4.0) % Baso % (Auto) (0.0-2.0) % Neut # (Auto) (1.8-7.7) th/mm3 Lymph # (Auto) (1.0-4.8) th/mm3 [place] # (Auto) (0.0-0.9) th/mm3 Eos # (Auto) (0.0-0.4) th/mm3 Baso # (Auto) (0.0-0.2) th/mm3 WBC Differential Differential Comment Hemoglobin A Hemoglobin A2 Hemoglobin F () Hgb A2/F Interpret Hemoglobin Variant 2 Hemoglobin Variant 3 Hemoglobin Variant % Sodium (136-145) meq/L Potassium (3.5-5.1) meq/L Chloride (98-107) meq/L Carbon Dioxide (21.0-32.0) meq/L Anion Gap (5-15) meq/L BUN (7-18) mg/dL Creatinine (0.60-1.30) mg/dL Estimated GFR (>89) mL/min POC Glucose 155 H 145 H 354 H (68-110) mg/dl Random Glucose (74-106) mg/dL Hemoglobin A1c (4.3-6.0) % Calcium (8.5-10.1) mg/dL Total Bilirubin (0.2-1.0) mg/dL AST (15-37) U/L ALT (12-78) U/L Alkaline Phosphatase (45-117) U/L Total Protein (6.4-8.2) g/dL Albumin (3.4-5.0) g/dL Triglycerides (42-150) mg/dL Cholesterol (120-200) mg/dL LDL Cholesterol, Calc (0-99) mg/dL HDL Cholesterol (40.0-60.0) mg/dL Cholesterol/HDL Ratio Ratio TSH (0.358-3.740) uIU/mL Urine Color (Yellw/Straw) Urine Clarity (Clear) Urine pH (5.0-8.5) Ur Specific [place] (1.002-1.035) Urine Protein (Neg-Trace) mg/dL Urine Glucose (UA) (Negative) mg/dL Urine Ketones (Negative) mg/dL Urine Occult Blood (Negative) Urine Nitrate (Negative) Urine Bilirubin (Negative) Urine Urobilinogen (Less than 2) mg/dL Ur Leukocyte Esterase (Negative) Urine RBC (0-3) /hpf Urine WBC (0-5) /hpf Ur Squamous Epith Cells (0-5) /hpf Urine Bacteria (None) /hpf Urine Mucus (Occasional) /lpf Micro UA Comment Ur Microscopic Review Urine Culture Comments 06/29/18 06/29/18 06/29/18 Range/Units 00:49 07:16 11:20 WBC (4.0-11.0) th/mm3 RBC (4.50-5.90) mil/mm3 Hgb (13.0-17.0) gm/dL Hct (39.0-51.0) % MCV (80.0-100.0) fL MCH (27.0-34.0) pg MCHC (32.0-36.0) % RDW (11.6-17.2) % Plt Count (150-450) th/mm3 MPV (7.0-11.0) fL Neut % (Auto) (16.0-70.0) % Lymph % (Auto) (9.0-44.0) % [place] % (Auto) (0.0-8.0) % Eos % (Auto) (0.0-4.0) % Baso % (Auto) (0.0-2.0) % Neut # (Auto) (1.8-7.7) th/mm3 Lymph # (Auto) (1.0-4.8) th/mm3 [place] # (Auto) (0.0-0.9) th/mm3 Eos # (Auto) (0.0-0.4) th/mm3 Baso # (Auto) (0.0-0.2) th/mm3 WBC Differential Differential Comment Hemoglobin A Hemoglobin A2 Hemoglobin F () Hgb A2/F Interpret Hemoglobin Variant 2 Hemoglobin Variant 3 Hemoglobin Variant % Sodium (136-145) meq/L Potassium (3.5-5.1) meq/L Chloride (98-107) meq/L Carbon Dioxide (21.0-32.0) meq/L Anion Gap (5-15) meq/L BUN (7-18) mg/dL Creatinine (0.60-1.30) mg/dL Estimated GFR (>89) mL/min POC Glucose 268 H 80 216 H (68-110) mg/dl Random Glucose (74-106) mg/dL Hemoglobin A1c (4.3-6.0) % Calcium (8.5-10.1) mg/dL Total Bilirubin (0.2-1.0) mg/dL AST (15-37) U/L ALT (12-78) U/L Alkaline Phosphatase (45-117) U/L Total Protein (6.4-8.2) g/dL Albumin (3.4-5.0) g/dL Triglycerides (42-150) mg/dL Cholesterol (120-200) mg/dL LDL Cholesterol, Calc (0-99) mg/dL HDL Cholesterol (40.0-60.0) mg/dL Cholesterol/HDL Ratio Ratio TSH (0.358-3.740) uIU/mL Urine Color (Yellw/Straw) Urine Clarity (Clear) Urine pH (5.0-8.5) Ur Specific [place] (1.002-1.035) Urine Protein (Neg-Trace) mg/dL Urine Glucose (UA) (Negative) mg/dL Urine Ketones (Negative) mg/dL Urine Occult Blood (Negative) Urine Nitrate (Negative) Urine Bilirubin (Negative) Urine Urobilinogen (Less than 2) mg/dL Ur Leukocyte Esterase (Negative) Urine RBC (0-3) /hpf Urine WBC (0-5) /hpf Ur Squamous Epith Cells (0-5) /hpf Urine Bacteria (None) /hpf Urine Mucus (Occasional) /lpf Micro UA Comment Ur Microscopic Review Urine Culture Comments 06/29/18 06/29/18 06/30/18 Range/Units 15:56 20:18 06:15 WBC (4.0-11.0) th/mm3 RBC (4.50-5.90) mil/mm3 Hgb (13.0-17.0) gm/dL Hct (39.0-51.0) % MCV (80.0-100.0) fL MCH (27.0-34.0) pg MCHC (32.0-36.0) % RDW (11.6-17.2) % Plt Count (150-450) th/mm3 MPV (7.0-11.0) fL Neut % (Auto) (16.0-70.0) % Lymph % (Auto) (9.0-44.0) % [place] % (Auto) (0.0-8.0) % Eos % (Auto) (0.0-4.0) % Baso % (Auto) (0.0-2.0) % Neut # (Auto) (1.8-7.7) th/mm3 Lymph # (Auto) (1.0-4.8) th/mm3 [place] # (Auto) (0.0-0.9) th/mm3 Eos # (Auto) (0.0-0.4) th/mm3 Baso # (Auto) (0.0-0.2) th/mm3 WBC Differential Differential Comment Hemoglobin A Hemoglobin A2 Hemoglobin F () Hgb A2/F Interpret Hemoglobin Variant 2 Hemoglobin Variant 3 Hemoglobin Variant % Sodium (136-145) meq/L Potassium (3.5-5.1) meq/L Chloride (98-107) meq/L Carbon Dioxide (21.0-32.0) meq/L Anion Gap (5-15) meq/L BUN (7-18) mg/dL Creatinine (0.60-1.30) mg/dL Estimated GFR (>89) mL/min POC Glucose 260 H 245 H 115 H (68-110) mg/dl Random Glucose (74-106) mg/dL Hemoglobin A1c (4.3-6.0) % Calcium (8.5-10.1) mg/dL Total Bilirubin (0.2-1.0) mg/dL AST (15-37) U/L ALT (12-78) U/L Alkaline Phosphatase (45-117) U/L Total Protein (6.4-8.2) g/dL Albumin (3.4-5.0) g/dL Triglycerides (42-150) mg/dL Cholesterol (120-200) mg/dL LDL Cholesterol, Calc (0-99) mg/dL HDL Cholesterol (40.0-60.0) mg/dL Cholesterol/HDL Ratio Ratio TSH (0.358-3.740) uIU/mL Urine Color (Yellw/Straw) Urine Clarity (Clear) Urine pH (5.0-8.5) Ur Specific [place] (1.002-1.035) Urine Protein (Neg-Trace) mg/dL Urine Glucose (UA) (Negative) mg/dL Urine Ketones (Negative) mg/dL Urine Occult Blood (Negative) Urine Nitrate (Negative) Urine Bilirubin (Negative) Urine Urobilinogen (Less than 2) mg/dL Ur Leukocyte Esterase (Negative) Urine RBC (0-3) /hpf Urine WBC (0-5) /hpf Ur Squamous Epith Cells (0-5) /hpf Urine Bacteria (None) /hpf Urine Mucus (Occasional) /lpf Micro UA Comment Ur Microscopic Review Urine Culture Comments 06/30/18 06/30/18 06/30/18 Range/Units 11:26 15:55 20:26 WBC (4.0-11.0) th/mm3 RBC (4.50-5.90) mil/mm3 Hgb (13.0-17.0) gm/dL Hct (39.0-51.0) % MCV (80.0-100.0) fL MCH (27.0-34.0) pg MCHC (32.0-36.0) % RDW (11.6-17.2) % Plt Count (150-450) th/mm3 MPV (7.0-11.0) fL Neut % (Auto) (16.0-70.0) % Lymph % (Auto) (9.0-44.0) % [place] % (Auto) (0.0-8.0) % Eos % (Auto) (0.0-4.0) % Baso % (Auto) (0.0-2.0) % Neut # (Auto) (1.8-7.7) th/mm3 Lymph # (Auto) (1.0-4.8) th/mm3 [place] # (Auto) (0.0-0.9) th/mm3 Eos # (Auto) (0.0-0.4) th/mm3 Baso # (Auto) (0.0-0.2) th/mm3 WBC Differential Differential Comment Hemoglobin A Hemoglobin A2 Hemoglobin F () Hgb A2/F Interpret Hemoglobin Variant 2 Hemoglobin Variant 3 Hemoglobin Variant % Sodium (136-145) meq/L Potassium (3.5-5.1) meq/L Chloride (98-107) meq/L Carbon Dioxide (21.0-32.0) meq/L Anion Gap (5-15) meq/L BUN (7-18) mg/dL Creatinine (0.60-1.30) mg/dL Estimated GFR (>89) mL/min POC Glucose 226 H 222 H 289 H (68-110) mg/dl Random Glucose (74-106) mg/dL Hemoglobin A1c (4.3-6.0) % Calcium (8.5-10.1) mg/dL Total Bilirubin (0.2-1.0) mg/dL AST (15-37) U/L ALT (12-78) U/L Alkaline Phosphatase (45-117) U/L Total Protein (6.4-8.2) g/dL Albumin (3.4-5.0) g/dL Triglycerides (42-150) mg/dL Cholesterol (120-200) mg/dL LDL Cholesterol, Calc (0-99) mg/dL HDL Cholesterol (40.0-60.0) mg/dL Cholesterol/HDL Ratio Ratio TSH (0.358-3.740) uIU/mL Urine Color (Yellw/Straw) Urine Clarity (Clear) Urine pH (5.0-8.5) Ur Specific [place] (1.002-1.035) Urine Protein (Neg-Trace) mg/dL Urine Glucose (UA) (Negative) mg/dL Urine Ketones (Negative) mg/dL Urine Occult Blood (Negative) Urine Nitrate (Negative) Urine Bilirubin (Negative) Urine Urobilinogen (Less than 2) mg/dL Ur Leukocyte Esterase (Negative) Urine RBC (0-3) /hpf Urine WBC (0-5) /hpf Ur Squamous Epith Cells (0-5) /hpf Urine Bacteria (None) /hpf Urine Mucus (Occasional) /lpf Micro UA Comment Ur Microscopic Review Urine Culture Comments 07/01/18 07/01/18 07/02/18 Range/Units 06:30 20:38 20:03 WBC (4.0-11.0) th/mm3 RBC (4.50-5.90) mil/mm3 Hgb (13.0-17.0) gm/dL Hct (39.0-51.0) % MCV (80.0-100.0) fL MCH (27.0-34.0) pg MCHC (32.0-36.0) % RDW (11.6-17.2) % Plt Count (150-450) th/mm3 MPV (7.0-11.0) fL Neut % (Auto) (16.0-70.0) % Lymph % (Auto) (9.0-44.0) % [place] % (Auto) (0.0-8.0) % Eos % (Auto) (0.0-4.0) % Baso % (Auto) (0.0-2.0) % Neut # (Auto) (1.8-7.7) th/mm3 Lymph # (Auto) (1.0-4.8) th/mm3 [place] # (Auto) (0.0-0.9) th/mm3 Eos # (Auto) (0.0-0.4) th/mm3 Baso # (Auto) (0.0-0.2) th/mm3 WBC Differential Differential Comment Hemoglobin A Hemoglobin A2 Hemoglobin F () Hgb A2/F Interpret Hemoglobin Variant 2 Hemoglobin Variant 3 Hemoglobin Variant % Sodium (136-145) meq/L Potassium (3.5-5.1) meq/L Chloride (98-107) meq/L Carbon Dioxide (21.0-32.0) meq/L Anion Gap (5-15) meq/L BUN (7-18) mg/dL Creatinine (0.60-1.30) mg/dL Estimated GFR (>89) mL/min POC Glucose 202 H 352 H 293 H (68-110) mg/dl Random Glucose (74-106) mg/dL Hemoglobin A1c (4.3-6.0) % Calcium (8.5-10.1) mg/dL Total Bilirubin (0.2-1.0) mg/dL AST (15-37) U/L ALT (12-78) U/L Alkaline Phosphatase (45-117) U/L Total Protein (6.4-8.2) g/dL Albumin (3.4-5.0) g/dL Triglycerides (42-150) mg/dL Cholesterol (120-200) mg/dL LDL Cholesterol, Calc (0-99) mg/dL HDL Cholesterol (40.0-60.0) mg/dL Cholesterol/HDL Ratio Ratio TSH (0.358-3.740) uIU/mL Urine Color (Yellw/Straw) Urine Clarity (Clear) Urine pH (5.0-8.5) Ur Specific [place] (1.002-1.035) Urine Protein (Neg-Trace) mg/dL Urine Glucose (UA) (Negative) mg/dL Urine Ketones (Negative) mg/dL Urine Occult Blood (Negative) Urine Nitrate (Negative) Urine Bilirubin (Negative) Urine Urobilinogen (Less than 2) mg/dL Ur Leukocyte Esterase (Negative) Urine RBC (0-3) /hpf Urine WBC (0-5) /hpf Ur Squamous Epith Cells (0-5) /hpf Urine Bacteria (None) /hpf Urine Mucus (Occasional) /lpf Micro UA Comment Ur Microscopic Review Urine Culture Comments 07/03/18 07/03/18 07/04/18 Range/Units 03:49 20:46 21:11 WBC (4.0-11.0) th/mm3 RBC (4.50-5.90) mil/mm3 Hgb (13.0-17.0) gm/dL Hct (39.0-51.0) % MCV (80.0-100.0) fL MCH (27.0-34.0) pg MCHC (32.0-36.0) % RDW (11.6-17.2) % Plt Count (150-450) th/mm3 MPV (7.0-11.0) fL Neut % (Auto) (16.0-70.0) % Lymph % (Auto) (9.0-44.0) % [place] % (Auto) (0.0-8.0) % Eos % (Auto) (0.0-4.0) % Baso % (Auto) (0.0-2.0) % Neut # (Auto) (1.8-7.7) th/mm3 Lymph # (Auto) (1.0-4.8) th/mm3 [place] # (Auto) (0.0-0.9) th/mm3 Eos # (Auto) (0.0-0.4) th/mm3 Baso # (Auto) (0.0-0.2) th/mm3 WBC Differential Differential Comment Hemoglobin A Hemoglobin A2 Hemoglobin F () Hgb A2/F Interpret Hemoglobin Variant 2 Hemoglobin Variant 3 Hemoglobin Variant % Sodium (136-145) meq/L Potassium (3.5-5.1) meq/L Chloride (98-107) meq/L Carbon Dioxide (21.0-32.0) meq/L Anion Gap (5-15) meq/L BUN (7-18) mg/dL Creatinine (0.60-1.30) mg/dL Estimated GFR (>89) mL/min POC Glucose 164 H 335 H 306 H (68-110) mg/dl Random Glucose (74-106) mg/dL Hemoglobin A1c (4.3-6.0) % Calcium (8.5-10.1) mg/dL Total Bilirubin (0.2-1.0) mg/dL AST (15-37) U/L ALT (12-78) U/L Alkaline Phosphatase (45-117) U/L Total Protein (6.4-8.2) g/dL Albumin (3.4-5.0) g/dL Triglycerides (42-150) mg/dL Cholesterol (120-200) mg/dL LDL Cholesterol, Calc (0-99) mg/dL HDL Cholesterol (40.0-60.0) mg/dL Cholesterol/HDL Ratio Ratio TSH (0.358-3.740) uIU/mL Urine Color (Yellw/Straw) Urine Clarity (Clear) Urine pH (5.0-8.5) Ur Specific [place] (1.002-1.035) Urine Protein (Neg-Trace) mg/dL Urine Glucose (UA) (Negative) mg/dL Urine Ketones (Negative) mg/dL Urine Occult Blood (Negative) Urine Nitrate (Negative) Urine Bilirubin (Negative) Urine Urobilinogen (Less than 2) mg/dL Ur Leukocyte Esterase (Negative) Urine RBC (0-3) /hpf Urine WBC (0-5) /hpf Ur Squamous Epith Cells (0-5) /hpf Urine Bacteria (None) /hpf Urine Mucus (Occasional) /lpf Micro UA Comment Ur Microscopic Review Urine Culture Comments 07/05/18 07/06/18 07/06/18 Range/Units 06:34 06:32 10:09 WBC (4.0-11.0) th/mm3 RBC (4.50-5.90) mil/mm3 Hgb (13.0-17.0) gm/dL Hct (39.0-51.0) % MCV (80.0-100.0) fL MCH (27.0-34.0) pg MCHC (32.0-36.0) % RDW (11.6-17.2) % Plt Count (150-450) th/mm3 MPV (7.0-11.0) fL Neut % (Auto) (16.0-70.0) % Lymph % (Auto) (9.0-44.0) % [place] % (Auto) (0.0-8.0) % Eos % (Auto) (0.0-4.0) % Baso % (Auto) (0.0-2.0) % Neut # (Auto) (1.8-7.7) th/mm3 Lymph # (Auto) (1.0-4.8) th/mm3 [place] # (Auto) (0.0-0.9) th/mm3 Eos # (Auto) (0.0-0.4) th/mm3 Baso # (Auto) (0.0-0.2) th/mm3 WBC Differential Differential Comment Hemoglobin A Hemoglobin A2 Hemoglobin F () Hgb A2/F Interpret Hemoglobin Variant 2 Hemoglobin Variant 3 Hemoglobin Variant % Sodium (136-145) meq/L Potassium (3.5-5.1) meq/L Chloride (98-107) meq/L Carbon Dioxide (21.0-32.0) meq/L Anion Gap (5-15) meq/L BUN (7-18) mg/dL Creatinine (0.60-1.30) mg/dL Estimated GFR (>89) mL/min POC Glucose 148 H 67 L 238 H (68-110) mg/dl Random Glucose (74-106) mg/dL Hemoglobin A1c (4.3-6.0) % Calcium (8.5-10.1) mg/dL Total Bilirubin (0.2-1.0) mg/dL AST (15-37) U/L ALT (12-78) U/L Alkaline Phosphatase (45-117) U/L Total Protein (6.4-8.2) g/dL Albumin (3.4-5.0) g/dL Triglycerides (42-150) mg/dL Cholesterol (120-200) mg/dL LDL Cholesterol, Calc (0-99) mg/dL HDL Cholesterol (40.0-60.0) mg/dL Cholesterol/HDL Ratio Ratio TSH (0.358-3.740) uIU/mL Urine Color (Yellw/Straw) Urine Clarity (Clear) Urine pH (5.0-8.5) Ur Specific [place] (1.002-1.035) Urine Protein (Neg-Trace) mg/dL Urine Glucose (UA) (Negative) mg/dL Urine Ketones (Negative) mg/dL Urine Occult Blood (Negative) Urine Nitrate (Negative) Urine Bilirubin (Negative) Urine Urobilinogen (Less than 2) mg/dL Ur Leukocyte Esterase (Negative) Urine RBC (0-3) /hpf Urine WBC (0-5) /hpf Ur Squamous Epith Cells (0-5) /hpf Urine Bacteria (None) /hpf Urine Mucus (Occasional) /lpf Micro UA Comment Ur Microscopic Review Urine Culture Comments 07/06/18 07/07/18 07/07/18 Range/Units 20:04 06:51 07:21 WBC (4.0-11.0) th/mm3 RBC (4.50-5.90) mil/mm3 Hgb (13.0-17.0) gm/dL Hct (39.0-51.0) % MCV (80.0-100.0) fL MCH (27.0-34.0) pg MCHC (32.0-36.0) % RDW (11.6-17.2) % Plt Count (150-450) th/mm3 MPV (7.0-11.0) fL Neut % (Auto) (16.0-70.0) % Lymph % (Auto) (9.0-44.0) % [place] % (Auto) (0.0-8.0) % Eos % (Auto) (0.0-4.0) % Baso % (Auto) (0.0-2.0) % Neut # (Auto) (1.8-7.7) th/mm3 Lymph # (Auto) (1.0-4.8) th/mm3 [place] # (Auto) (0.0-0.9) th/mm3 Eos # (Auto) (0.0-0.4) th/mm3 Baso # (Auto) (0.0-0.2) th/mm3 WBC Differential Differential Comment Hemoglobin A Hemoglobin A2 Hemoglobin F () Hgb A2/F Interpret Hemoglobin Variant 2 Hemoglobin Variant 3 Hemoglobin Variant % Sodium (136-145) meq/L Potassium (3.5-5.1) meq/L Chloride (98-107) meq/L Carbon Dioxide (21.0-32.0) meq/L Anion Gap (5-15) meq/L BUN (7-18) mg/dL Creatinine (0.60-1.30) mg/dL Estimated GFR (>89) mL/min POC Glucose 360 H 57 L 89 (68-110) mg/dl Random Glucose (74-106) mg/dL Hemoglobin A1c (4.3-6.0) % Calcium (8.5-10.1) mg/dL Total Bilirubin (0.2-1.0) mg/dL AST (15-37) U/L ALT (12-78) U/L Alkaline Phosphatase (45-117) U/L Total Protein (6.4-8.2) g/dL Albumin (3.4-5.0) g/dL Triglycerides (42-150) mg/dL Cholesterol (120-200) mg/dL LDL Cholesterol, Calc (0-99) mg/dL HDL Cholesterol (40.0-60.0) mg/dL Cholesterol/HDL Ratio Ratio TSH (0.358-3.740) uIU/mL Urine Color (Yellw/Straw) Urine Clarity (Clear) Urine pH (5.0-8.5) Ur Specific [place] (1.002-1.035) Urine Protein (Neg-Trace) mg/dL Urine Glucose (UA) (Negative) mg/dL Urine Ketones (Negative) mg/dL Urine Occult Blood (Negative) Urine Nitrate (Negative) Urine Bilirubin (Negative) Urine Urobilinogen (Less than 2) mg/dL Ur Leukocyte Esterase (Negative) Urine RBC (0-3) /hpf Urine WBC (0-5) /hpf Ur Squamous Epith Cells (0-5) /hpf Urine Bacteria (None) /hpf Urine Mucus (Occasional) /lpf Micro UA Comment Ur Microscopic Review Urine Culture Comments 07/07/18 07/07/18 07/07/18 Range/Units 08:23 11:38 16:34 WBC (4.0-11.0) th/mm3 RBC (4.50-5.90) mil/mm3 Hgb (13.0-17.0) gm/dL Hct (39.0-51.0) % MCV (80.0-100.0) fL MCH (27.0-34.0) pg MCHC (32.0-36.0) % RDW (11.6-17.2) % Plt Count (150-450) th/mm3 MPV (7.0-11.0) fL Neut % (Auto) (16.0-70.0) % Lymph % (Auto) (9.0-44.0) % [place] % (Auto) (0.0-8.0) % Eos % (Auto) (0.0-4.0) % Baso % (Auto) (0.0-2.0) % Neut # (Auto) (1.8-7.7) th/mm3 Lymph # (Auto) (1.0-4.8) th/mm3 [place] # (Auto) (0.0-0.9) th/mm3 Eos # (Auto) (0.0-0.4) th/mm3 Baso # (Auto) (0.0-0.2) th/mm3 WBC Differential Differential Comment Hemoglobin A Hemoglobin A2 Hemoglobin F () Hgb A2/F Interpret Hemoglobin Variant 2 Hemoglobin Variant 3 Hemoglobin Variant % Sodium (136-145) meq/L Potassium (3.5-5.1) meq/L Chloride (98-107) meq/L Carbon Dioxide (21.0-32.0) meq/L Anion Gap (5-15) meq/L BUN (7-18) mg/dL Creatinine (0.60-1.30) mg/dL Estimated GFR (>89) mL/min POC Glucose 120 H 164 H 259 H (68-110) mg/dl Random Glucose (74-106) mg/dL Hemoglobin A1c (4.3-6.0) % Calcium (8.5-10.1) mg/dL Total Bilirubin (0.2-1.0) mg/dL AST (15-37) U/L ALT (12-78) U/L Alkaline Phosphatase (45-117) U/L Total Protein (6.4-8.2) g/dL Albumin (3.4-5.0) g/dL Triglycerides (42-150) mg/dL Cholesterol (120-200) mg/dL LDL Cholesterol, Calc (0-99) mg/dL HDL Cholesterol (40.0-60.0) mg/dL Cholesterol/HDL Ratio Ratio TSH (0.358-3.740) uIU/mL Urine Color (Yellw/Straw) Urine Clarity (Clear) Urine pH (5.0-8.5) Ur Specific [place] (1.002-1.035) Urine Protein (Neg-Trace) mg/dL Urine Glucose (UA) (Negative) mg/dL Urine Ketones (Negative) mg/dL Urine Occult Blood (Negative) Urine Nitrate (Negative) Urine Bilirubin (Negative) Urine Urobilinogen (Less than 2) mg/dL Ur Leukocyte Esterase (Negative) Urine RBC (0-3) /hpf Urine WBC (0-5) /hpf Ur Squamous Epith Cells (0-5) /hpf Urine Bacteria (None) /hpf Urine Mucus (Occasional) /lpf Micro UA Comment Ur Microscopic Review Urine Culture Comments 07/07/18 07/08/18 07/08/18 Range/Units 20:14 05:33 11:14 WBC (4.0-11.0) th/mm3 RBC (4.50-5.90) mil/mm3 Hgb (13.0-17.0) gm/dL Hct (39.0-51.0) % MCV (80.0-100.0) fL MCH (27.0-34.0) pg MCHC (32.0-36.0) % RDW (11.6-17.2) % Plt Count (150-450) th/mm3 MPV (7.0-11.0) fL Neut % (Auto) (16.0-70.0) % Lymph % (Auto) (9.0-44.0) % [place] % (Auto) (0.0-8.0) % Eos % (Auto) (0.0-4.0) % Baso % (Auto) (0.0-2.0) % Neut # (Auto) (1.8-7.7) th/mm3 Lymph # (Auto) (1.0-4.8) th/mm3 [place] # (Auto) (0.0-0.9) th/mm3 Eos # (Auto) (0.0-0.4) th/mm3 Baso # (Auto) (0.0-0.2) th/mm3 WBC Differential Differential Comment Hemoglobin A Hemoglobin A2 Hemoglobin F () Hgb A2/F Interpret Hemoglobin Variant 2 Hemoglobin Variant 3 Hemoglobin Variant % Sodium (136-145) meq/L Potassium (3.5-5.1) meq/L Chloride (98-107) meq/L Carbon Dioxide (21.0-32.0) meq/L Anion Gap (5-15) meq/L BUN (7-18) mg/dL Creatinine (0.60-1.30) mg/dL Estimated GFR (>89) mL/min POC Glucose 302 H 104 215 H (68-110) mg/dl Random Glucose (74-106) mg/dL Hemoglobin A1c (4.3-6.0) % Calcium (8.5-10.1) mg/dL Total Bilirubin (0.2-1.0) mg/dL AST (15-37) U/L ALT (12-78) U/L Alkaline Phosphatase (45-117) U/L Total Protein (6.4-8.2) g/dL Albumin (3.4-5.0) g/dL Triglycerides (42-150) mg/dL Cholesterol (120-200) mg/dL LDL Cholesterol, Calc (0-99) mg/dL HDL Cholesterol (40.0-60.0) mg/dL Cholesterol/HDL Ratio Ratio TSH (0.358-3.740) uIU/mL Urine Color (Yellw/Straw) Urine Clarity (Clear) Urine pH (5.0-8.5) Ur Specific [place] (1.002-1.035) Urine Protein (Neg-Trace) mg/dL Urine Glucose (UA) (Negative) mg/dL Urine Ketones (Negative) mg/dL Urine Occult Blood (Negative) Urine Nitrate (Negative) Urine Bilirubin (Negative) Urine Urobilinogen (Less than 2) mg/dL Ur Leukocyte Esterase (Negative) Urine RBC (0-3) /hpf Urine WBC (0-5) /hpf Ur Squamous Epith Cells (0-5) /hpf Urine Bacteria (None) /hpf Urine Mucus (Occasional) /lpf Micro UA Comment Ur Microscopic Review Urine Culture Comments Imaging Data Radiologist's impression: Head CT 06/27/18 00:00 CONCLUSION: 1. Negative for acute process . Abdomen/Bladder Ultrasound 06/28/18 00:00 CONCLUSION: 1. Normal sonographic appearance the kidneys. 2. No evidence of hydronephrosis Toe X-Ray 06/28/18 00:00 CONCLUSION: No acute abnormality. Discharge Plan Discharge Disposition Patient Disposition: 04 ACLF/JESSICA Discharge Condition Condition: Fair Discharge Order Discharge Orders: Discharge Order (Routine); Ordered 07/08/18 Ordered By: Ambrosio Lockett Physicians Team ED Provider: Ryland Miller Primary Care Provider: Jovanny Obrien Attending Provider: Ambrosio Lockett Status ED Status: Left Department Discharge Information Discharge Date/Time: 06/26/18 20:40 Discharge Location: [facility]
[2018-06-26] MEDS ORDERED: LORazepam 1 MG Tablet PO PRN (20:27)
[2018-06-26] MEDS ORDERED: Acetaminophen 325 MG Tablet PO PRN (20:28)
[2018-06-26] MEDS ORDERED: Aluminum/Magnesium/Simethacone Susp 30 ML UDC PO PRN (20:28)
[2018-06-26] MEDS ORDERED: Insulin Detemir Inj 1,000 UNIT/10 ML Vial SQ SCH (21:30)
[2018-06-27] MEDS ORDERED: Haloperidol Inj 5 MG/ML Ampul IM SCH (03:00)
[2018-06-27] MEDS ORDERED: LORazepam 1 MG Tablet PO SCH (09:00)
[2018-06-27 09:27] LABS: Calcium 9.7 mg/dL (8.5-10.1); Carbon Dioxide 21.3 meq/L (21.0-32.0); Potassium 4.3 meq/L (3.5-5.1)
[2018-06-27 09:32] LABS: Chol/HDL Ratio 5.15 Ratio; HDL Cholesterol 35.3 mg/dL (40.0-60.0)
--- NOTE | 2018-06-27 12:51 | P.HPPSY ---
Provisional Diagnosis Admission Date: June 26, 2018 20:40 Hughes I.: Alzheimer's disease with other onset, dementia with behavioral disturbances Competence Certification of Person's Competence To Provide Express and Informed Consent I have personally examined Geronimo Raygoza, a person being served at [facility] on, June 27, 2018 1241. Express and informed consent means consent voluntarily given in writing, by a competent person, after sufficient explanation and disclosure of the subject matter involved to enable the person to make a knowing and willful decision without any element of force, fraud, deceit, duress, or other form of constraint or coercion. This person is 18 years of age or older, is not now known to be incompetent to consent to treatment with a guardian advocate, and does not have a health care surrogate or proxy currently making medical treatment decisions. I have found this person to be one of the following: [] Competent to provide express and informed consent, as defined above, for voluntary admission to this facility and is competent to provide express and informed consent for treatment. He/she has the consistent capacity to make well reasoned, willful, and knowing decisions concerning his or her medical or mental health treatment. The person fully and consistently understands the purpose of the admission for examination/placement and is fully capable of personally exercising all rights assured under [place]xxx] Incompetent to provide express and informed consent to voluntary admission , and this is incompetent to provide express and informed consent to treatment. The person must be transferred to involuntary status and a petition for a guardian advocate filed with the Circuit Court. [] Refusing to provide express and informed consent to voluntary admission but is competent to provide express and informed consent for treatment. The person must be discharged or transferred to involuntary status. Form shall be completed within 24 hours of a person's arrival at the receiving facility and filed in the clinical record of each person: 1. Admitted on a voluntary basis 2. Permitted to provide express and informed consent to his/her own treatment 3. Allowed to transfer from involuntary to voluntary status 4. Prior to permitting a person to consent to his or her own treatment after having been previously found incompetent to consent to treatment. History of Present Illness Capacity: Lacks capacity History of Present Illness: Patient is a 73-year-old white male known to us from multiple prior contacts related to his dementia and behavioral issues. Comes here again under Rae act from his home. Patient has recent history of the past few weeks of increasing agitation and violence aggressiveness towards his and more now wandering from the house and night into busy traffic. Patient was seen in the ED behaviors out of control to the point where he needed DTO of Haldol and Ativan and Benadryl. At the present time patient sitting quietly in his Dorothea chair in the dayroom it appears she recognize me from prior contacts on a care for him in 2016. Patient is oriented only to self. He states he lives with his mother and father who have been for over 30 years. He is vague about living with his . He denies suicidality denies voices or visions. Denies alcohol use. Denies any misbehaving. I also talked with patient's will return ayesha [phone] who verifies the above information. She states she and her 2 adult children and now investigating possible placement for her . She is willing to be healthcare surrogate guardian advocate. We did arrange to meet tomorrow morning at about 10 AM to further discuss diagnosis treatment medications and placement. If this time patient does meet criteria for involuntary hospitalization I will do first opinion request second opinion I feel he has no capacity we will ask for health care surrogate and guardian advocate. We will have the hospitalist consult will S will have PT consult will us - Inpatient Certification I certify that the inpatient services were ordered in accordance with Medicare regulations governing the order. This includes certification that hospital inpatient services are reasonable and necessary and in the case of services not specified as inpatient-only under 42 CFR 419.22(n), that they are appropriately provided as inpatient services in accordance to with the 2-midnight benchmark under 43 CFR 412.3(e) I certify that inpatient psychiatric hospital services are medically necessary. Evaluation and treatment and/or diagnostic testing are expected to improve the patient's condition. The patient needs on a daily basis, active treatment furnished directly by or requiring the supervision of inpatient psychiatric facility personnel. Estimated Total Length of Stay (Days): 5 Plans for Post Hospital Care: Not yet determined Review of Systems All other systems reviewed negative except as stated in HPI PMFSH - History History Provided By: Patient, Family Member - Medical History Medical History: Medical History (Last Reviewed 06/26/18 @ 15:34 by Ryland Miller MD) Diabetes Hypertension - Tobacco History Second Hand Smoke Exposure: No Smoking Status: Refused to answer - Alcohol History How Often Do You Have a Drink Containing Alcohol: Unable to Obtain - Substance Use History Substance History: No History of Abuse - Immunization History Tetanus Immunization: Unable to Assess Hx Influenza Vaccine This Season: Unable to Assess Quality Measures - Psychiatric History Psychological trauma history: Unknown at this time Violence risk to others in the last 6 months: Patient has been getting more and more aggressive towards his Violence risk to self in the last 6 months: Denies - Substance Abuse History Drug or alcohol use in the past 12 months: Unknown at this time - Patient Strengths Patient's strengths (minimum of 2): Patient verbal able access healthcare has supportive family Medications and Allergies Active Medications: Active Medications Acetaminophen (Tylenol) 650 mg PO Q4H PRN PRN Reason: Pain 1-5 or Temp >101F Al Hydrox/Mg Hydrox/Simethicone (Mag-Al Plus Susp Liq) 30 ml PO Q6H PRN PRN Reason: DYSPEPSIA Al Hydroxide/Mg Hydroxide (Milk Of Magnesia Liq) 30 ml PO DAILY PRN PRN Reason: CONSTIPATION Al Hydroxide/Mg Hydroxide (Milk Of Magnesia Liq) 30 ml PO Q12H PRN PRN Reason: Mild Constipation Diphenhydramine HCl (Benadryl) 25 mg PO HS PRN PRN Reason: INSOMNIA Last Admin: 06/26/18 21:36 Dose: 25 mg Diphenhydramine HCl (Benadryl) 50 mg PO HS PRN PRN Reason: INSOMNIA Hydroxyzine HCl (Atarax) 50 mg PO Q6H PRN PRN Reason: ANXIETY Insulin Detemir (Levemir Inj) 50 unit SQ HS [facility] Last Admin: 06/26/18 21:35 Dose: 50 unit Lamotrigine (Lamictal) 25 mg PO DAILY LAUREN Metoprolol Succinate (Toprol Xl) 25 mg PO HS [facility] Last Admin: 06/26/18 21:36 Dose: 25 mg Metoprolol Succinate (Toprol Xl) 25 mg PO HS [facility] Non-Formulary Medication (Insulin Glargine) 50 unit SQ HS [facility] Non-Formulary Medication (Dapagliflozin [Farxiga]) 10 mg PO QAM [place]UREN [place]: Farxiga ( Dapagliflozin) 10 Mg By Mouth Daily 1 each PO DAILY LAUREN Allergies Allergy/AdvReac Type Severity Reaction Status Date / Time morphine Allergy Severe SHAKING Verified 06/26/18 16:46 Home Medications Medication Instructions Recorded Confirmed Type Abh Gel 2 packet TOPICAL Q4-6H PRN 06/26/18 06/26/18 History dapagliflozin [Farxiga] 10 mg PO QAM 06/26/18 06/26/18 History insulin glargine [Lantus U-100 50 unit SUB-Q HS 06/26/18 06/26/18 History Insulin] lamotrigine [Lamictal] 25 mg PO DAILY 06/26/18 06/26/18 History lorazepam [Ativan] 1 mg PO DAILY 06/26/18 06/26/18 History metoprolol succinate 25 mg PO HS 06/26/18 06/26/18 History Results - Labs CBC & Chem 7: 06/26/18 13:00 06/27/18 07:52 Labs: Laboratory Results - last 24 hr 06/26/18 06/26/18 06/26/18 13:00 13:00 20:51 WBC 9.6 RBC 5.28 Hgb 15.4 Hct 46.4 MCV 88.0 MCH 29.1 MCHC 33.1 RDW 13.5 Plt Count 267 MPV 8.2 Neut % (Auto) 76.9 H Lymph % (Auto) 14.3 [place] % (Auto) 8.4 H Eos % (Auto) 0.1 Baso % (Auto) 0.3 Neut # (Auto) 7.4 Lymph # (Auto) 1.4 [place] # (Auto) 0.8 Eos # (Auto) 0.0 Baso # (Auto) 0.0 WBC Differential . Differential Comment Auto diff final Hemoglobin A Hemoglobin A2 Hemoglobin F () Hgb A2/F Interpret Hemoglobin Variant 2 Hemoglobin Variant 3 Hemoglobin Variant % Sodium 139 Potassium 4.7 Chloride 106 Carbon Dioxide 17.9 L Anion Gap 15 BUN 32 H Creatinine 1.93 H Estimated GFR 34 L POC Glucose 467 H* Random Glucose 321 H Calcium 9.4 Total Bilirubin 0.5 AST 20 ALT 27 Alkaline Phosphatase 91 Total Protein 8.3 H Albumin 4.2 Triglycerides Cholesterol LDL Cholesterol, Calc HDL Cholesterol Cholesterol/HDL Ratio TSH 1.880 06/27/18 06/27/18 06/27/18 06:28 07:32 07:52 WBC RBC Hgb Hct MCV MCH MCHC RDW Plt Count MPV Neut % (Auto) Lymph % (Auto) [place] % (Auto) Eos % (Auto) Baso % (Auto) Neut # (Auto) Lymph # (Auto) [place] # (Auto) Eos # (Auto) Baso # (Auto) WBC Differential Differential Comment Hemoglobin A Cancelled Hemoglobin A2 Cancelled Hemoglobin F () Cancelled Hgb A2/F Interpret Cancelled Hemoglobin Variant 2 Cancelled Hemoglobin Variant 3 Cancelled Hemoglobin Variant % Cancelled Sodium 138 Potassium 4.3 Chloride 105 Carbon Dioxide 21.3 Anion Gap 12 BUN 36 H Creatinine 1.88 H Estimated GFR 35 L POC Glucose 209 H Random Glucose 186 H D Calcium 9.7 Total Bilirubin AST ALT Alkaline Phosphatase Total Protein Albumin Triglycerides 147 Cholesterol 182 LDL Cholesterol, Calc 117 H HDL Cholesterol 35.3 L Cholesterol/HDL Ratio 5.15 TSH Exam Vital signs: Vital Signs 06/26/18 12:59 06/26/18 13:43 06/26/18 18:19 Temperature 98.0 F Pulse Rate 98 H Respiratory Rate 18 18 16 Blood Pressure 164/67 H 134/69 172/76 H Pulse Oximetry 97 97 97 06/26/18 20:25 06/27/18 06:08 Temperature 97.9 F 97.3 F L Pulse Rate 82 91 H Respiratory Rate 17 17 Blood Pressure 156/70 H 176/70 H Pulse Oximetry 95 98 Intake & Output 06/26/18 06/27/18 06/27/18 18:59 06:59 18:59 Weight 81.647 kg 84.5 kg Other: Weight On Admission 84.5 kg Narrative: Patient sitting quietly in Dorothea chair he is in no acute distress, is in no respiratory distress, no complaints of chest pain or abdominal pain, patient moving all 4 extremities without there is a erythematous red area over the base of the left second toe patient no complaints of pain with that area is walking without difficulty Mental Status Examination Appearance: Appropriate Consciousness: Alert Orientation: Person (Vaguely) Motor Activity: Normal gait Speech: Unremarkable Language: Adequate Fund of Knowledge: Inadequate Attention and Concentration: Easily distracted Memory: Impaired Mood: Other (Euthymic to somewhat labile and irritable) Affect: Other (Slight increased range and intensity) Thought Process & Associations: Disorganized Thought Content: Bizarre thinking Hallucination Type: None Delusion Type: Paranoid Suicidal Ideation: No Suicidal Plan: No Suicidal Intention: No Homicidal Ideation: No Homicidal Plan: No Homicidal Intention: No Insight: Poor Judgment: Poor Assessment and Plan - Assessment (1) Dementia in other diseases classified elsewhere with behavioral disturbance Code(s): F02.81 - Dementia in other diseases classified elsewhere with behavioral disturbance Status: Acute (2) Other Alzheimer's disease Code(s): G30.8 - Other Alzheimer's disease; F02.80 - Dementia in other diseases classified elsewhere without behavioral disturbance Status: Acute - Plan Plan: Estimated LOS: [5] days Patient severely demented with significant behavioral problems. Patient does meet Rae criteria I will do first opinion request second opinion will ask for health care surrogate and guardian advocate. Patient scheduled for MRI of the brain will medicate to allow to be attempted. We will meet with and daughter tomorrow. Hospitalist to consult will us. PT the consult will us Justification for Continued Inpatient Stay: At this time patient would decompensate if placed in a lower level of care Discharge Planning: To be determined Request Healthcare Surrogate/Guardian Advocate?: Yes
[2018-06-27] MEDS ORDERED: Haloperidol Inj 5 MG/ML Ampul IM STA (12:52)
[2018-06-27] MEDS ORDERED: Haloperidol Inj 5 MG/ML Ampul ONE (12:53)
--- NOTE | 2018-06-27 14:14 | CT ---
EXAM DATE: 06/27/2018 2:10 PM EDT AGE/SEX: 73 years / Male INDICATIONS: Altered mental status. CLINICAL DATA: This is the patient's initial encounter. Patient reports that signs and symptoms have been present for 1 day and indicates a pain score of 0/10. MEDICAL/SURGICAL HISTORY: Diabetes. Hypertension. None. RADIATION DOSE: 47.70 CTDI (mGy) COMPARISON: [facility] [place], CT BRAIN W/O CONTRAST, 10/26/2016. . TECHNIQUE: CT of the head without contrast. Using automated exposure control and adjustment of the mA and/or kV according to patient size, radiation dose was kept as low as reasonably achievable to ob tain optimal diagnostic quality images. DICOM format image data is available electronically for revi ew and comparison. FINDINGS: Cerebrum: The ventricles are normal for age. No evidence of midline shift, mass lesion, hemorrhage or acute infarction. No extraaxial fluid collections are seen. Posterior Fossa: The cerebellum and brainstem are intact. The 4th ventricle is midline. The cerebe llopontine angle is unremarkable. Extracranial: The visualized portion of the orbits is intact. Skull: The calvaria is intact. No evidence of skull fracture. CONCLUSION: 1. Negative for acute process . Electronically signed by: Garrett Mart MD 06/27/2018 2:13 PM EDT
--- NOTE | 2018-06-27 15:38 | P.CON ---
History of Present Illness Service: [facility] Consult date: 06/27/18 Requesting Physician: Jovanny Lozoya Reason for Consult: Assist with medical management Primary Care Provider: Jovanny Obrien Family Provider: Jovanny Obrien Chief Complaint: Agitation, confusion History of Present Illness: Patient is a 73 year old male with past medical history of diabetes, HTN, severe dementia with behavioral disturbance who initially came into the hospital from [facility]. Patient was at [facility] with severe agitation and combativeness. He is now admitted to inpatient psychiatry and for further evaluation. Consulted for assistance with medical management. Patient seen and examined today. Patient is severely demented, poor historian. Notable hallucinations trying to access the door saying it is his car. Follows commands but very confused. Patient continues to wonder around his room on exam. Review of Systems unobtainable due to mental condition PMFSH - History History Provided By: Patient, Family Member - Medical / Surgical Hx Neg / Unobtainable Surgical History: Unable to Obtain - Medical History Medical History: Medical History (Last Reviewed 06/27/18 @ 16:35 by OLEG Thacker) Diabetes Hypertension - Tobacco History Second Hand Smoke Exposure: No Smoking Status: Refused to answer - Alcohol History How Often Do You Have a Drink Containing Alcohol: Unable to Obtain - Substance Use History Substance History: No History of Abuse - Immunization History Tetanus Immunization: Unable to Assess Hx Influenza Vaccine This Season: Unable to Assess Medications and Allergies Active Medications: Active Medications Acetaminophen (Tylenol) 650 mg PO Q4H PRN PRN Reason: Pain 1-5 or Temp >101F Al Hydrox/Mg Hydrox/Simethicone (Mag-Al Plus Susp Liq) 30 ml PO Q6H PRN PRN Reason: DYSPEPSIA Al Hydroxide/Mg Hydroxide (Milk Of Magnesia Liq) 30 ml PO Q12H PRN PRN Reason: Mild Constipation Diphenhydramine HCl (Benadryl) 50 mg PO HS PRN PRN Reason: INSOMNIA Hydroxyzine HCl (Atarax) 50 mg PO Q6H PRN PRN Reason: ANXIETY Insulin Detemir (Levemir Inj) 50 unit SQ HS [facility] Lamotrigine (Lamictal) 25 mg PO DAILY [facility] Metoprolol Succinate (Toprol Xl) 25 mg PO HS [facility]UR[facility] Ptown: Farxiga ( Dapagliflozin) 10 Mg By Mouth Daily 1 each PO DAILY [facility] Allergies Allergy/AdvReac Type Severity Reaction Status Date / Time morphine Allergy Severe SHAKING Verified 06/26/18 16:46 Home Medications Medication Instructions Recorded Confirmed Type Abh Gel 2 packet TOPICAL Q4-6H PRN 06/26/18 06/26/18 History dapagliflozin [Farxiga] 10 mg PO QAM 06/26/18 06/26/18 History insulin glargine [Lantus U-100 50 unit SUB-Q HS 06/26/18 06/26/18 History Insulin] lamotrigine [Lamictal] 25 mg PO DAILY 06/26/18 06/26/18 History lorazepam [Ativan] 1 mg PO DAILY 06/26/18 06/26/18 History metoprolol succinate 25 mg PO HS 06/26/18 06/26/18 History Physical Exam Vital signs: Vital Signs 06/26/18 18:19 06/26/18 20:25 06/27/18 06:08 Temperature 97.9 F 97.3 F L Pulse Rate 98 H 82 91 H Respiratory Rate 16 17 17 Blood Pressure 172/76 H 156/70 H 176/70 H Pulse Oximetry 97 95 98 Intake & Output 06/26/18 06/27/18 06/27/18 18:59 06:59 18:59 Weight 81.647 kg 84.5 kg Other: Weight On Admission 84.5 kg Narrative: GENERAL: This is a thin appearing, well-developed patient, in no apparent distress. SKIN: Warm and dry. HEENT: Normocephalic. Nonicteric sclerae. Nose without bleeding. Airway patent. NECK: Trachea midline. CARDIOVASCULAR: Regular rate and rhythm without murmurs, gallops, or rubs. RESPIRATORY: Clear to auscultation. Breath sounds equal bilaterally. No wheezes , rales, or rhonchi. GASTROINTESTINAL: Abdomen soft, non-tender, nondistended. Bowel Sounds normoactive x4. MUSCULOSKELETAL: Extremities without clubbing, cyanosis, or edema. Right second toe ecchymotic, nontender. NEUROLOGICAL: Awake and alert. Moves all extremities. Unintelligible speech. Assessment and Plan - Plan Patient is a 73 year old male with past medical history of diabetes, HTN, severe dementia with behavioral disturbance who initially came into the hospital from [facility]. Patient was at [facility] with severe agitation and combativeness. He is now admitted to inpatient psychiatry and for further evaluation. Consulted for assistance with medical management. Dementia with behavioral disturbance -Managed by psychiatry team -Check UA, increased confusion and combativeness Acute renal insufficiency on possibly chronic kidney disease -Monitor renal indicis -Avoid nephrotoxins -IV fluids for hydration -Check bladder scan DM 2 -Continue home medication Lantus, insulin sliding scale -Hemoglobin A1c HTN -Continue metoprolol 25 mg nightly DVT prop ambulatory Code Status: Full Code Discussed Condition With: Nursing Discharge Planning: DC disposition by primary team
[2018-06-27] MEDS ORDERED: Sod Chloride 0.9% Inj 1,000 ML IV.CONT SCH (16:00)
[2018-06-27 16:08] LABS: Hemoglobin A1c 9.6 % (4.3-6.0)
[2018-06-27] MEDS ORDERED: Haloperidol Inj 5 MG/ML Ampul IM ONE (17:15)
[2018-06-27] MEDS ORDERED: HYDROmorphone PF Inj 2 MG/ML Vial IV.PUSH ONE (18:00)
--- NOTE | 2018-06-27 18:16 | ECG ---
Date Performed: 06/26/2018 Time Performed: 22:26:27 PTAGE: 73 years EKG: Sinus rhythm NONSPECIFIC T-WAVE ABNORMALITY When compared to previous tracing, ST-T wave changes are new. BORDERL INE ECG PREVIOUS TRACING : 10/26/2016 11.04 DOCTOR: Heriberto Nicolas Interpretating Date/Time 06/27/2018 18:14:51
--- NOTE | 2018-06-27 18:23 | P.PNADD ---
Addendum to Inpatient Note Reason for Addendum: Additional Documentation Additional information: Called by RN, patient has been holding his suprapubic area appears to be in pain. Attempted to Place Erazo catheter is ordered. Attempted from bladder scan but patient has been combative and unable to control behavior. Bilateral wrist restraints on patient for now. Inserted straight catheter small amount of urine, no obstruction noted, smooth insertion, the patient has been screaming and yelling at times, combative appears, to be in pain. patient as he was attempted to have Erazo catheter earlier. We will send urine for UA. Small amount of blood clots noted. Will do US kidney bladder ultrasound. Start Flomax for now. IV Dilaudid 1 dose.
[2018-06-27 18:40] LABS: Bacteria,Urine Occasional /hpf; Bilirubin,Urine Negative (Negative); Clarity,Urine Cloudy (Clear); Color,Urine Amber (Yellw/Straw); Glucose,Urine (UA) 500 or Greater mg/dL (Negative); Leukocyte Esterase,Urine Negative (Negative); Mucus,Urine Few /lpf (Occasional); Nitrite,Urine Negative (Negative); Specific Gravity,Urine 1.021 (1.002-1.035); Squamous Epithelial Cell,Urine 2 /hpf (0-5)
[2018-06-27] MEDS: Insulin Detemir Inj 1,000 UNIT/10 ML Vial SQ SCH (20:51)
[2018-06-27] MEDS ORDERED: [UNRECOGNIZED DRUG - REMARK] T-DERMAL SCH (21:00)
[2018-06-28] MEDS ORDERED: DAPAGLIFLOZIN 10 MG PO SCH (09:00)
--- NOTE | 2018-06-28 09:23 | US ---
EXAM DATE: 06/28/2018 9:19 AM EDT AGE/SEX: 73 years / Male INDICATIONS: Flank pain. Renal insufficiency. CLINICAL DATA: This is the patient's initial encounter. Patient reports that signs and symptoms have been present for 1 day and indicates a pain score of 0/10. MEDICAL/SURGICAL HISTORY: . Diabetes. HTN. None. COMPARISON: No prior exams available for comparison. MEASUREMENTS: Right Kidney:__10.9 x 4.9 x 5.0 cm Left Kidney:__10.3 x 4.6 x 5.7 cm FINDINGS: Right Kidney: Normal echotexture and cortical thickness. No mass or hydronephrosis. Left Kidney: Normal echotexture and cortical thickness. No mass or hydronephrosis. Bladder: Within normal limits given the degree of distension. Other: None. CONCLUSION: 1. Normal sonographic appearance the kidneys. 2. No evidence of hydronephrosis Electronically signed by: Yoni Jj MD 06/28/2018 9:22 AM EDT
[2018-06-28 09:40] LABS: Potassium 3.6 meq/L (3.5-5.1)
[2018-06-28] MEDS ORDERED: Haloperidol Inj 5 MG/ML Ampul IM ONE (10:06)
[2018-06-28] MEDS ORDERED: Haloperidol Inj 5 MG/ML Ampul ONE (10:09)
--- NOTE | 2018-06-28 10:41 | P.CONPSY ---
Provisional Diagnosis Admission Date: June 26, 2018 20:40 [place] Alzheimer's disease with other onset, dementia with behavioral disturbances History of Present Illness Service: Psychiatry Consult date: 06/28/18 Requesting Physician: Jovanny Lozoya Reason for Consult: Second opinion Primary Care Provider: Jovanny Obrien Family Provider: Jovanny Obrien Chief Complaint: Agitation, confusion History of Present Illness: Patient is a 73 y/o man, , with past psychiatric history of dementia, prior psychiatric admissions, admitted under [facility] for increased agitation and aggressive behavior toward his along with wandering which patient was admitted to the inpatient unit for further evaluation and management and safety. Patient was found lying on hospital bed in soft restraints, noted to be agitated attempting to free himself requiring redirection and ETO to treat current symptoms. Patient disorganized, confused, stating that he is at his home, alert and oriented to person only. Patient reports sleeping well and good appetite. Patient noted with contusion to 2nd toe of Lt foot. Review of Systems All other systems reviewed negative except as stated in HPI PMFSH - History History Provided By: Patient, Medical Record - Medical History Medical History: Medical History (Last Reviewed 06/28/18 @ 07:52 by Lefty Kingston) Diabetes Hypertension - Tobacco History Second Hand Smoke Exposure: No Smoking Status: Refused to answer - Alcohol History How Often Do You Have a Drink Containing Alcohol: Unable to Obtain - Substance Use History Substance History: No History of Abuse - Immunization History Tetanus Immunization: Unable to Assess Hx Influenza Vaccine This Season: Unable to Assess Medications and Allergies Active Medications: Active Medications Acetaminophen (Tylenol) 650 mg PO Q4H PRN PRN Reason: Pain 1-5 or Temp >101F Al Hydrox/Mg Hydrox/Simethicone (Mag-Al Plus Susp Liq) 30 ml PO Q6H PRN PRN Reason: DYSPEPSIA Al Hydroxide/Mg Hydroxide (Milk Of Magnesia Liq) 30 ml PO Q12H PRN PRN Reason: Mild Constipation Diphenhydramine HCl (Benadryl) 50 mg PO HS PRN PRN Reason: INSOMNIA Last Admin: 06/28/18 01:20 Dose: 50 mg Hydroxyzine HCl (Atarax) 50 mg PO Q6H PRN PRN Reason: ANXIETY Last Admin: 06/28/18 01:20 Dose: 50 mg Insulin Detemir (Levemir Inj) 50 unit SQ [facility] Last Admin: 06/27/18 20:51 Dose: Not Given Lamotrigine (Lamictal) 25 mg PO DAILY [facility] Metoprolol Succinate (Toprol Xl) 25 mg PO [facility] Last Admin: 06/27/18 22:52 Dose: Not Given Ptown: Farxiga ( Dapagliflozin) 10 Mg By Mouth Daily 1 each PO DAILY [facility] Tamsulosin HCl (Flomax) 0.4 mg PO [facility] Last Admin: 06/27/18 20:50 Dose: 0.4 mg Allergies Allergy/AdvReac Type Severity Reaction Status Date / Time morphine Allergy Severe SHAKING Verified 06/26/18 16:46 Home Medications Medication Instructions Recorded Confirmed Type Abh Gel 2 packet TOPICAL Q4-6H PRN 06/26/18 06/26/18 History dapagliflozin [Farxiga] 10 mg PO QA 06/26/18 06/26/18 History insulin glargine [Lantus U-100 50 unit SUB-Q 06/26/18 06/26/18 History Insulin] lamotrigine [Lamictal] 25 mg PO DAILY 06/26/18 06/26/18 History lorazepam [Ativan] 1 mg PO DAILY 06/26/18 06/26/18 History metoprolol succinate 25 mg PO 06/26/18 06/26/18 History Exam Vital signs: Vital Signs 06/28/18 06:00 Pulse Rate 92 H Blood Pressure 187/82 H Intake & Output 06/27/18 06/28/18 06/28/18 18:59 06:59 18:59 Intake Total 100 / 100 Balance 100 / 100 Intake: Oral 100 / 100 Narrative: Physical examination difficult to perform today as patient is in 4 point soft restraints and episodically agitated but noted to have contusion to left second toe. - Constitutional agitated Mental Status Examination Appearance: Appropriate Consciousness: Alert Orientation: Person (Vaguely) Motor Activity: Normal gait Speech: Unremarkable Language: Adequate Fund of Knowledge: Inadequate Attention and Concentration: Easily distracted Memory: Impaired Mood: Other (Euthymic to somewhat labile and irritable) Affect: Irritable Thought Process & Associations: Disorganized Thought Content: Bizarre thinking Hallucination Type: None Delusion Type: Paranoid Suicidal Ideation: No Suicidal Plan: No Suicidal Intention: No Homicidal Ideation: No Homicidal Plan: No Homicidal Intention: No Insight: Poor Judgment: Poor Assessment and Plan - Assessment (1) Dementia in other diseases classified elsewhere with behavioral disturbance Code(s): F02.81 - Dementia in other diseases classified elsewhere with behavioral disturbance Status: Acute (2) Other Alzheimer's disease Code(s): G30.8 - Other Alzheimer's disease; F02.80 - Dementia in other diseases classified elsewhere without behavioral disturbance Status: Acute - Plan Plan: I have seen and examined this patient, reviewed the documentation, and I agree and concur with Dr. Lozoya assessment and plan. I have completed second opinion for the petition for involuntary hospitalization. Consult appreciated. Patient received Haldol 5 mg IM/Ativan 2 mg IM for agitation, we will order x- ray of second toe of left foot. Continue treatment as per Dr. Lozoya assessment and plan. Justification for Continued Inpatient Stay: At risk of further decompensation a lower level care. Request Healthcare Surrogate/Guardian Advocate?: Yes
[2018-06-28] MEDS: lamoTRIgine 25 MG TABLET PO SCH (11:12)
--- NOTE | 2018-06-28 11:36 | P.PN ---
Subjective Interval history: Follow-up visit acute kidney injury, dementia with behavioral disturbance, suprapubic pain, HTN, DM2. Patient seen and examined today laying in bed but there is restraints. As per nursing, patient is screaming and yelling throughout the morning and was given Ativan, states patient voided 3 wetting his diapers. Patient seems to be drowsy. Follows simple commands otherwise responding to any questions. Moves all extremities. Appears to be comfortable. Physical Exam Vital signs: Vital Signs 06/28/18 06:00 Pulse Rate 92 H Blood Pressure 187/82 H Intake & Output 06/27/18 06/28/18 06/28/18 18:59 06:59 18:59 Intake Total 100 / 100 Balance 100 / 100 Intake: Oral 100 / 100 Narrative: GENERAL: This is a thin appearing, well-developed patient, in no apparent distress. SKIN: Warm and dry. HEENT: Normocephalic. Nonicteric sclerae. Nose without bleeding. Airway patent. NECK: Trachea midline. CARDIOVASCULAR: Regular rate and rhythm without murmurs, gallops, or rubs. RESPIRATORY: Clear to auscultation. Breath sounds equal bilaterally. No wheezes , rales, or rhonchi. GASTROINTESTINAL: Abdomen soft, nondistended. Bowel Sounds normoactive x4. Suprapubic area nontender to palpation, abdominal area nontender to palpation. MUSCULOSKELETAL: Extremities without clubbing, cyanosis, or edema. Right second toe ecchymotic, nontender. NEUROLOGICAL: Drowsy moves all extremities. Unintelligible speech. Results - Labs CBC & Chem 7: 06/26/18 13:00 06/28/18 07:35 Laboratory Results - last 24 hr 06/27/18 06/27/18 06/27/18 07:52 15:59 17:30 Sodium Potassium Chloride Carbon Dioxide Anion Gap BUN Creatinine Estimated GFR POC Glucose 141 H Random Glucose Hemoglobin A1c 9.6 H Calcium Urine Color Karen H Urine Clarity Cloudy H Urine pH 5.0 Ur Specific [place] 1.021 Urine Protein 30 H Urine Glucose (UA) 500 or greater Urine Ketones Trace H Urine Occult Blood Large H Urine Nitrate Negative Urine Bilirubin Negative Urine Urobilinogen Less than 2 Ur Leukocyte Esterase Negative Urine RBC Urine WBC 23 H Ur Squamous Epith Cells 2 Urine Bacteria Occasional H Urine Mucus Few H Micro UA Comment Culture indicated Ur Microscopic Review Not Reportable Urine Culture Comments Culture indicated 06/27/18 06/27/18 06/27/18 20:45 20:58 21:24 Sodium Potassium Chloride Carbon Dioxide Anion Gap BUN Creatinine Estimated GFR POC Glucose 58 L 55 L 72 Random Glucose Hemoglobin A1c Calcium Urine Color Urine Clarity Urine pH Ur Specific [place] Urine Protein Urine Glucose (UA) Urine Ketones Urine Occult Blood Urine Nitrate Urine Bilirubin Urine Urobilinogen Ur Leukocyte Esterase Urine RBC Urine WBC Ur Squamous Epith Cells Urine Bacteria Urine Mucus Micro UA Comment Ur Microscopic Review Urine Culture Comments 06/28/18 06/28/18 06/28/18 05:39 07:35 07:59 Sodium 144 Potassium 3.6 Chloride 110 H Carbon Dioxide 23.0 Anion Gap 11 BUN 26 H Creatinine 1.21 Estimated GFR 59 L POC Glucose 106 101 Random Glucose 91 Hemoglobin A1c Calcium 9.0 Urine Color Urine Clarity Urine pH Ur Specific [place] Urine Protein Urine Glucose (UA) Urine Ketones Urine Occult Blood Urine Nitrate Urine Bilirubin Urine Urobilinogen Ur Leukocyte Esterase Urine RBC Urine WBC Ur Squamous Epith Cells Urine Bacteria Urine Mucus Micro UA Comment Ur Microscopic Review Urine Culture Comments - Imaging Impressions Head CT 06/27/18 00:00 CONCLUSION: 1. Negative for acute process . Abdomen/Bladder Ultrasound 06/28/18 00:00 CONCLUSION: 1. Normal sonographic appearance the kidneys. 2. No evidence of hydronephrosis Assessment and Plan - Plan Patient is a 73 year old male with past medical history of diabetes, HTN, severe dementia with behavioral disturbance who initially came into the hospital from [facility]. Patient was at [facility] with severe agitation and combativeness. He is now admitted to inpatient psychiatry and for further evaluation. Consulted for assistance with medical management. Dementia with behavioral disturbance -Managed by psychiatry team Acute renal insufficiency on possibly chronic kidney disease -Monitor renal indicis -Avoid nephrotoxins -IV fluids for hydration given -Renal ultrasound normal sonographic appearance of the kidneys. No evidence of hydronephrosis. -Improved DM 2 -Continue home medication Lantus, insulin sliding scale -Hemoglobin A1c HTN -Continue metoprolol 25 mg nightly Suprapubic tenderness Retention? -Flomax UA abnormal -Follow-up cultures. Possibly contaminated secondary to multiple insertions of straight catheter from retention. DVT prop ambulatory Patient may transfer to regular psychiatry unit. Code Status: Full Code Discussed Condition With: Nursing Discharge Planning: DC disposition by primary team
--- NOTE | 2018-06-28 11:39 | XR ---
EXAM DATE: 06/28/2018 11:34 AM EDT AGE/SEX: 73 years / Male INDICATIONS: 2nd digit black and blue. Combative and kicking CLINICAL DATA: This is the patient's initial encounter. Patient reports that signs and symptoms have been present for 1 day and indicates a pain score of 0/10. MEDICAL/SURGICAL HISTORY: None. None. COMPARISON: No prior exams available for comparison. FINDINGS: Bony structures are intact and in normal alignment. Joints are intact without dislocation or signifi cant arthropathy. Osseous density is normal and no destructive changes. No cortical thinning.. Ather osclerotic calcification seen involving the soft tissues of the forefoot. No radiopaque foreign brianna s seen. CONCLUSION: No acute abnormality. Electronically signed by: Jerald Delgado MD 06/28/2018 11:38 AM EDT
--- NOTE | 2018-06-28 15:17 | P.PNPSY ---
Subjective Remarks: Met with patient's and daughter prior to seeing patient. Discussed with family diagnosis treatment and recommendations. They are aware of the severity of his dementia. Patient's states she is now afraid for her safety with her with his volatility and his threatening behaviors. They are in the process also of looking for an appropriate facility at this time the also stated it is the wish of the family of the patient been to DO NOT RESUSCITATE. He also stated he has had difficulty in the past both swallowing that he "chokes a lot when he eats" we will also get a swallow study done. I then went to see patient patient laying in bed with soft restraints he is calm cooperative and diffusely confused. Did not recognize me from yesterday. It appears though he is stabilized to the point where he can be returned back to 2500 in the bed available should allow her more ambulation and exercising. Review of Systems All other systems reviewed negative except as stated in HPI Mental Status Examination Appearance: Appropriate Consciousness: Alert Orientation: Person (Vaguely) Motor Activity: Normal gait Speech: Unremarkable Language: Adequate Fund of Knowledge: Inadequate Attention and Concentration: Easily distracted Memory: Impaired Mood: Other (Euthymic to somewhat labile and irritable) Affect: Irritable Thought Process & Associations: Disorganized Thought Content: Bizarre thinking Hallucination Type: None Delusion Type: Paranoid Suicidal Ideation: No Suicidal Plan: No Suicidal Intention: No Homicidal Ideation: No Homicidal Plan: No Homicidal Intention: No Insight: Poor Judgment: Poor Assessment and Plan - Assessment (1) Dementia in other diseases classified elsewhere with behavioral disturbance Code(s): F02.81 - Dementia in other diseases classified elsewhere with behavioral disturbance Status: Acute (2) Other Alzheimer's disease Code(s): G30.8 - Other Alzheimer's disease; F02.80 - Dementia in other diseases classified elsewhere without behavioral disturbance Status: Acute - Plan Plan: Patient continues demented confused at times labile and somewhat irritable. Patient to be made a DNR and willing to have a swallow study done we will otherwise continue to work at finding appropriate placement and observing patient for any behavioral issues Justification for Continued Inpatient Stay: At this time patient would decompensate a place to a lower level of care Discharge Planning: To be determined Request Healthcare Surrogate/Guardian Advocate?: Yes
[2018-06-28] MEDS: Insulin Detemir Inj 1,000 UNIT/10 ML Vial SQ SCH (23:14)
[2018-06-29] MEDS ORDERED: Haloperidol Inj 5 MG/ML Ampul IM SCH
[2018-06-29] MEDS: lamoTRIgine 25 MG TABLET PO SCH (09:22)
--- NOTE | 2018-06-29 11:40 | P.PNPSY ---
Subjective Remarks: Patient seen and smith with floor staff, chart reviewed, patient compliant medications. It appears patient had some increased behavioral issues late night yesterday needing as needed medication. This morning patient is calm pleasantly confused with me though at times appears to be exit seeking Review of Systems All other systems reviewed negative except as stated in HPI Mental Status Examination Appearance: Appropriate Consciousness: Alert Orientation: Person (Vaguely) Motor Activity: Normal gait Speech: Unremarkable Language: Adequate Fund of Knowledge: Inadequate Attention and Concentration: Easily distracted Memory: Impaired Mood: Other (Euthymic to somewhat labile and irritable) Affect: Irritable Thought Process & Associations: Disorganized Thought Content: Bizarre thinking Hallucination Type: None Delusion Type: Paranoid Suicidal Ideation: No Suicidal Plan: No Suicidal Intention: No Homicidal Ideation: No Homicidal Plan: No Homicidal Intention: No Insight: Poor Judgment: Poor Assessment and Plan - Assessment (1) Dementia in other diseases classified elsewhere with behavioral disturbance Code(s): F02.81 - Dementia in other diseases classified elsewhere with behavioral disturbance Status: Acute (2) Other Alzheimer's disease Code(s): G30.8 - Other Alzheimer's disease; F02.80 - Dementia in other diseases classified elsewhere without behavioral disturbance Status: Acute - Plan Plan: Patient remained severely confused and demented, it appears she had another episode of dyscontrol yesterday evening. We will add Seroquel as mentioned above to regimen Justification for Continued Inpatient Stay: At this time patient would decompensate a place to a lower level of care Discharge Planning: We are working with family to find appropriate placement Request Healthcare Surrogate/Guardian Advocate?: Yes
[2018-06-29] MEDS: QUEtiapine 25 MG Tablet PO SCH ×3 (12:15→20:48)
--- NOTE | 2018-06-29 14:54 | P.PN ---
Subjective Interval history: Follow-up visit acute kidney injury, dementia with behavioral disturbance, HTN, DM2. Patient seen and examined today. Wandering hallways. States he is doing okay, he needs to go. Asking if I know his . Denies pain and discomfort. Denies SOB/ dyspnea. Physical Exam Vital signs: Vital Signs 06/28/18 17:45 06/28/18 21:00 06/29/18 07:30 Temperature 98.7 F Pulse Rate 100 H 88 80 Respiratory Rate 17 20 20 Blood Pressure 190/106 H 124/80 174/81 H Pulse Oximetry 98 98 Intake & Output 06/28/18 06/29/18 06/29/18 18:59 06:59 18:59 Intake Total 340 / 340 480 / 480 Balance 340 / 340 480 / 480 Intake: Oral 340 / 340 480 / 480 Narrative: GENERAL: This is a thin appearing, well-developed patient, in no apparent distress. SKIN: Warm and dry. HEENT: Normocephalic. Nonicteric sclerae. Nose without bleeding. Airway patent. NECK: Trachea midline. CARDIOVASCULAR: Regular rate and rhythm without murmurs, gallops, or rubs. RESPIRATORY: Clear to auscultation. Breath sounds equal bilaterally. No wheezes , rales, or rhonchi. GASTROINTESTINAL: Abdomen soft, nondistended. Bowel Sounds normoactive x4. Suprapubic area nontender to palpation, abdominal area nontender to palpation. MUSCULOSKELETAL: Extremities without clubbing, cyanosis, or edema. Right second toe ecchymotic, nontender. NEUROLOGICAL: Drowsy moves all extremities. Unintelligible speech. Results - Labs CBC & Chem 7: 06/26/18 13:00 06/28/18 07:35 Laboratory Results - last 24 hr 06/28/18 06/28/18 06/29/18 16:26 20:14 00:49 POC Glucose 145 H 354 H 268 H 06/29/18 06/29/18 07:16 11:20 POC Glucose 80 216 H Microbiology 06/27/18 17:30 Clean Catch Urine Urine Culture - Final No growth in 48 hours Assessment and Plan - Plan Patient is a 73 year old male with past medical history of diabetes, HTN, severe dementia with behavioral disturbance who initially came into the hospital from [facility]. Patient was at [facility] with severe agitation and combativeness. He is now admitted to inpatient psychiatry and for further evaluation. Consulted for assistance with medical management. Dementia with behavioral disturbance -Managed by psychiatry team Acute renal insufficiency on possibly chronic kidney disease -Monitor renal indicis -Avoid nephrotoxins -IV fluids for hydration given -Renal ultrasound normal sonographic appearance of the kidneys. No evidence of hydronephrosis. -Improved DM 2 -Continue home medication Lantus, insulin sliding scale -Hemoglobin A1c HTN -Continue metoprolol 25 mg nightly Suprapubic tenderness Retention? -Flomax UA abnormal -Follow-up cultures. Possibly contaminated secondary to multiple insertions of straight catheter from retention. -Cultures NGTD DVT prop ambulatory Stable from Hospitalist standpoint. We will sign off. Reconsult as needed. Thank you. Code Status: DNR Discussed Condition With: Patient, nurse Discharge Planning: DC disposition by primary team
[2018-06-29] MEDS: Insulin Detemir Inj 1,000 UNIT/10 ML Vial SQ SCH (20:47)
[2018-06-30] MEDS: lamoTRIgine 25 MG TABLET PO SCH (09:02)
--- NOTE | 2018-06-30 10:26 | P.PNPSY ---
Subjective Remarks: Patient seen with nurse Puja. Patient sitting in Dorothea chair in day room he is calm chart reviewed, patient compliant medication. Patient calm cooperative with me continues diffusely confused. Per staff patient was up most of the night last night wandering taking the beddings off the bed. Needing frequent redirection. We will discontinue the at bedtime dose of Seroquel 25 mg and increase the at bedtime dose to 100 mg Review of Systems All other systems reviewed negative except as stated in HPI Mental Status Examination Appearance: Appropriate Consciousness: Alert Orientation: Person (Vaguely) Motor Activity: Normal gait Speech: Unremarkable Language: Adequate Fund of Knowledge: Inadequate Attention and Concentration: Easily distracted Memory: Impaired Mood: Other (Euthymic to somewhat labile and irritable) Affect: Other (Slight increased range and intensity) Thought Process & Associations: Disorganized Thought Content: Bizarre thinking Hallucination Type: None Delusion Type: Paranoid Suicidal Ideation: No Suicidal Plan: No Suicidal Intention: No Homicidal Ideation: No Homicidal Plan: No Homicidal Intention: No Insight: Poor Judgment: Poor Assessment and Plan - Assessment (1) Dementia in other diseases classified elsewhere with behavioral disturbance Code(s): F02.81 - Dementia in other diseases classified elsewhere with behavioral disturbance Status: Acute (2) Other Alzheimer's disease Code(s): G30.8 - Other Alzheimer's disease; F02.80 - Dementia in other diseases classified elsewhere without behavioral disturbance Status: Acute - Plan Plan: Patient is showing some increased signs of sundowning, see medication adjustments above hospitalist note reviewed and agreed with and appreciated Justification for Continued Inpatient Stay: At this time patient would decompensate a place to a lower level of care Discharge Planning: To be determined Request Healthcare Surrogate/Guardian Advocate?: Yes
[2018-06-30] MEDS: QUEtiapine 25 MG Tablet PO SCH ×2 (11:47→15:15)
[2018-06-30] MEDS: Insulin Detemir Inj 1,000 UNIT/10 ML Vial SQ SCH (21:08)
[2018-06-30] MEDS: QUEtiapine 100 MG Tablet PO SCH (21:08)
--- NOTE | 2018-07-01 08:34 | P.PNPSY ---
Subjective Remarks: Patient seen in day room with nurse Rachana, chart reviewed, patient compliant medication. Patient continues calm pleasant with me diffusely confused as to place time and situation. It appears he slept well last night. With a marked decrease in behavioral issues in the evening. For now continue treatment Review of Systems All other systems reviewed negative except as stated in HPI Mental Status Examination Appearance: Appropriate Consciousness: Alert Orientation: Person (Vaguely) Motor Activity: Normal gait Speech: Unremarkable Language: Adequate Fund of Knowledge: Inadequate Attention and Concentration: Easily distracted Memory: Impaired Mood: Other (Somewhat calm and restricted) Affect: Other (Good range and intensity) Thought Process & Associations: Disorganized Thought Content: Bizarre thinking Hallucination Type: None Delusion Type: Paranoid (Calm her) Suicidal Ideation: No Suicidal Plan: No Suicidal Intention: No Homicidal Ideation: No Homicidal Plan: No Homicidal Intention: No Insight: Poor Judgment: Poor Assessment and Plan - Assessment (1) Dementia in other diseases classified elsewhere with behavioral disturbance Code(s): F02.81 - Dementia in other diseases classified elsewhere with behavioral disturbance Status: Acute (2) Other Alzheimer's disease Code(s): G30.8 - Other Alzheimer's disease; F02.80 - Dementia in other diseases classified elsewhere without behavioral disturbance Status: Acute - Plan Plan: Patient remains confused disoriented though the been no significant behaviors in the past 24 hours or so. He slept better last night. For now continue treatment Justification for Continued Inpatient Stay: At this time patient would decompensate a place to a lower level of care Discharge Planning: To be determined family is looking towards placement Request Healthcare Surrogate/Guardian Advocate?: Yes
[2018-07-01] MEDS: lamoTRIgine 25 MG TABLET PO SCH (09:27)
[2018-07-01] MEDS: QUEtiapine 25 MG Tablet PO SCH ×2 (12:22→16:13)
[2018-07-01] MEDS ORDERED: LORazepam 1 MG Tablet PO ONE (18:30)
[2018-07-01] MEDS: Insulin Detemir Inj 1,000 UNIT/10 ML Vial SQ SCH (20:38)
[2018-07-01] MEDS: QUEtiapine 100 MG Tablet PO SCH (20:39)
[2018-07-02] MEDS: lamoTRIgine 25 MG TABLET PO SCH ×2 (08:24→11:07)
[2018-07-02] MEDS: QUEtiapine 25 MG Tablet PO SCH ×2 (13:08→18:41)
--- NOTE | 2018-07-02 17:49 | P.PNPSY ---
Subjective Remarks: Reviewed electronic medical records and discussed case with staff. Follow-up was conducted in the milieu. Patient states that he is feeling "fine". He reports that he slept "a little bit". And that his appetite is been "all right ". When asked how his mood is today he responds "right now not too good". When asked to elaborate on why he is not in a very good mood he responds, "I do believe there could be some problems tonight". When asked to elaborate on that statement he quickly becomes disorganized and cannot adequately express what kind of problems he thinks will occur. Mental Status Examination Appearance: Appropriate Consciousness: Alert Orientation: Person (Vaguely) Motor Activity: Normal gait Speech: Unremarkable Language: Adequate Fund of Knowledge: Inadequate Attention and Concentration: Easily distracted Memory: Impaired Mood: Other (Somewhat calm and restricted) Affect: Other (Good range and intensity) Thought Process & Associations: Disorganized Thought Content: Bizarre thinking Hallucination Type: None Delusion Type: Paranoid (Calm her) Suicidal Ideation: No Suicidal Plan: No Suicidal Intention: No Homicidal Ideation: No Homicidal Plan: No Homicidal Intention: No Insight: Poor Judgment: Poor Assessment and Plan - Assessment (1) Dementia in other diseases classified elsewhere with behavioral disturbance Code(s): F02.81 - Dementia in other diseases classified elsewhere with behavioral disturbance Status: Acute - Plan Plan: Patient will be reevaluated Wednesday by the attending psychiatrist. Continue with current treatment plan. Justification for Continued Inpatient Stay: Moving this patient to a less restrictive environment would likely result in decompensation. Request Healthcare Surrogate/Guardian Advocate?: Yes
[2018-07-02] MEDS: QUEtiapine 100 MG Tablet PO SCH (20:19)
[2018-07-02] MEDS: Insulin Detemir Inj 1,000 UNIT/10 ML Vial SQ SCH (21:03)
--- NOTE | 2018-07-03 08:36 | P.PNPSY ---
Subjective Remarks: Remarks: Reviewed electronic medical records and discussed case with staff. Night staff reported that patient became uncontrollable requiring emergency treatment medications x 2 during the night. He sustained a skin tear to his right hand. He is currently in his bed. He is responds to his name, but does not want to engage in conversation. His morning vital signs are stable and his blood sugar was 104. Review of Systems All other systems reviewed negative except as stated in HPI Comments: Skin tear to right hand. Mental Status Examination Appearance: Appropriate Consciousness: Asleep Orientation: Person (Vaguely) Motor Activity: Other (unable to determine at this time ) Speech: Unremarkable Language: Adequate Fund of Knowledge: Inadequate Attention and Concentration: Easily distracted Memory: Impaired Mood: Other (received two ETO last night , opens eyes and responds to his name ) Affect: Irritable Thought Process & Associations: Disorganized Thought Content: Bizarre thinking Hallucination Type: None Delusion Type: Paranoid (feels that others are following him ) Suicidal Ideation: No Suicidal Plan: No Suicidal Intention: No Homicidal Ideation: No Homicidal Plan: No Homicidal Intention: No Insight: Poor Judgment: Poor Assessment and Plan - Assessment (1) Dementia in other diseases classified elsewhere with behavioral disturbance Code(s): F02.81 - Dementia in other diseases classified elsewhere with behavioral disturbance Status: Acute - Plan Plan: Patient will be reevaluated Wednesday by the attending psychiatrist. Continue with current treatment plan. Justification for Continued Inpatient Stay: Moving patient to a less restrictive environment may result in his decompensation. Request Healthcare Surrogate/Guardian Advocate?: Yes
[2018-07-03] MEDS: lamoTRIgine 25 MG TABLET PO SCH (10:15)
[2018-07-03] MEDS: QUEtiapine 25 MG Tablet PO SCH ×2 (11:11→16:35)
[2018-07-03] MEDS: QUEtiapine 100 MG Tablet PO SCH (20:20)
[2018-07-03] MEDS: Insulin Detemir Inj 1,000 UNIT/10 ML Vial SQ SCH (20:53)
[2018-07-03] MEDS ORDERED: Haloperidol Inj 5 MG/ML Ampul ONE (21:31)
[2018-07-03] MEDS ORDERED: Haloperidol Inj 5 MG/ML Ampul IM ONE (21:45)
[2018-07-04] MEDS: lamoTRIgine 25 MG TABLET PO SCH ×2 (09:46→09:54)
--- NOTE | 2018-07-04 12:54 | P.PNPSY ---
Subjective Remarks: Patient seen in day room with nurse Selam, chart reviewed, patient compliant medication. Patient showed some increased agitation yesterday evening necessitating a as needed medication. Patient calm at this time though continues diffusely confused. We will increase daytime Seroquel to 50 mg at noon and at 6 PM Review of Systems All other systems reviewed negative except as stated in HPI Mental Status Examination Appearance: Appropriate Consciousness: Asleep Orientation: Person (Vaguely) Motor Activity: Other (unable to determine at this time ) Speech: Unremarkable Language: Adequate Fund of Knowledge: Inadequate Attention and Concentration: Easily distracted Memory: Impaired Mood: Other (received two ETO last night , opens eyes and responds to his name ) Affect: Irritable Thought Process & Associations: Disorganized Thought Content: Bizarre thinking Hallucination Type: None Delusion Type: Paranoid (feels that others are following him ) Suicidal Ideation: No Suicidal Plan: No Suicidal Intention: No Homicidal Ideation: No Homicidal Plan: No Homicidal Intention: No Insight: Poor Judgment: Poor Assessment and Plan - Assessment (1) Dementia in other diseases classified elsewhere with behavioral disturbance Code(s): F02.81 - Dementia in other diseases classified elsewhere with behavioral disturbance Status: Acute (2) Other Alzheimer's disease Code(s): G30.8 - Other Alzheimer's disease; F02.80 - Dementia in other diseases classified elsewhere without behavioral disturbance Status: Acute - Plan Plan: Patient remains confused and demented with "sundowning" type behaviors C medication adjustments above Justification for Continued Inpatient Stay: At this time patient would decompensate a place to a lower level of Discharge Planning: To be determined family working on placement issues Request Healthcare Surrogate/Guardian Advocate?: Yes
[2018-07-04] MEDS: QUEtiapine 25 MG Tablet PO SCH (17:18)
[2018-07-04] MEDS: QUEtiapine 100 MG Tablet PO SCH (20:44)
[2018-07-04] MEDS: Insulin Detemir Inj 1,000 UNIT/10 ML Vial SQ SCH (21:00)
[2018-07-04] MEDS ORDERED: Haloperidol Inj 5 MG/ML Ampul ONE (22:06)
--- NOTE | 2018-07-05 09:04 | P.TTN ---
- Patient Problems Problems: 1. Discharge planning 2. Medication compliance 3. Knowledge deficit 4. Lack of coping skills - Progress Toward Goals Provider Present: Dr. Jada Lozoya Provider Input: Patient had medication adjustment Psychiatric Counselors Present: Other Psychiatric Therapist Input: Patient has no insight, poor memory, cooprative yet can become agitated at night. JESSICA Alanis Lu is interested in accepting the patient Group Spec/RT/OT/CABALLERO Present: Emmy Richey, GPS Group Spec/RT/OT/CABALLERO Input: Unable to tolerate group activities - Documentation Teaching Recipient: Patient
[2018-07-05] MEDS ORDERED: Haloperidol Inj 5 MG/ML Ampul ONE (09:49)
[2018-07-05] MEDS ORDERED: Haloperidol Inj 5 MG/ML Ampul IM STA (09:52)
[2018-07-05] MEDS: lamoTRIgine 25 MG TABLET PO SCH (10:33)
[2018-07-05] MEDS: QUEtiapine 25 MG Tablet PO SCH ×2 (13:03→19:31)
--- NOTE | 2018-07-05 17:32 | P.PNPSY ---
Subjective Remarks: Prior to my seeing patient today became out of control exit seeking a taking a staff person near the door to the 2500 [address]. This necessitated medically necessary injections of Haldol and Ativan and Benadryl. Patient is subsequently calm patient seen this afternoon with nurse Selam. He is drowsy and napping at this time but arousable to diffusely confused demented. For now we will add 50 mg Seroquel and 0800 hrs. Review of Systems All other systems reviewed negative except as stated in HPI Mental Status Examination Appearance: Appropriate Consciousness: Asleep Orientation: Person (Vaguely) Motor Activity: Other (unable to determine at this time ) Speech: Unremarkable Language: Adequate Fund of Knowledge: Inadequate Attention and Concentration: Easily distracted Memory: Impaired Mood: Other (received two ETO last night , opens eyes and responds to his name ) Affect: Irritable Thought Process & Associations: Disorganized Thought Content: Bizarre thinking Hallucination Type: None Delusion Type: Paranoid (feels that others are following him ) Suicidal Ideation: No Suicidal Plan: No Suicidal Intention: No Homicidal Ideation: No Homicidal Plan: No Homicidal Intention: No Insight: Poor Judgment: Poor Assessment and Plan - Assessment (1) Dementia in other diseases classified elsewhere with behavioral disturbance Code(s): F02.81 - Dementia in other diseases classified elsewhere with behavioral disturbance Status: Acute (2) Other Alzheimer's disease Code(s): G30.8 - Other Alzheimer's disease; F02.80 - Dementia in other diseases classified elsewhere without behavioral disturbance Status: Acute - Plan Plan: Patient continues demented with increased behavioral issues now exhibiting themselves in the morning on she medication adjustment above Justification for Continued Inpatient Stay: At this time patient would decompensate a place to a lower level of care Discharge Planning: To be determined Request Healthcare Surrogate/Guardian Advocate?: Yes
[2018-07-05] MEDS: QUEtiapine 100 MG Tablet PO SCH (22:00)
[2018-07-05] MEDS: Insulin Detemir Inj 1,000 UNIT/10 ML Vial SQ SCH (22:01)
[2018-07-06] MEDS: lamoTRIgine 25 MG TABLET PO SCH (10:16)
[2018-07-06] MEDS: QUEtiapine 25 MG Tablet PO SCH ×3 (10:18→18:57)
--- NOTE | 2018-07-06 18:19 | P.PNPSY ---
Subjective Remarks: Patient seen for follow up; chart reviewed. Discussion with nursing staff reported that patient no behavioral issues, compliant medications, slept well last night and noted to be forgetful. Patient was found family on unit noted B , cooperative. Noted to be confused which is likely at baseline stating he is feeling good, denying any physical complaints at this time reports eating and drinking well. Patient is nonsensical statements, "I am good for the money". Review of Systems All other systems reviewed negative except as stated in HPI Mental Status Examination Appearance: Appropriate Consciousness: Asleep Orientation: Person (Vaguely) Motor Activity: Other (unable to determine at this time ) Speech: Unremarkable Language: Adequate Fund of Knowledge: Inadequate Attention and Concentration: Easily distracted Memory: Impaired Mood: Other (received two ETO last night , opens eyes and responds to his name ) Affect: Irritable Thought Process & Associations: Other (concrete) Thought Content: Bizarre thinking Hallucination Type: None Delusion Type: Paranoid (minimal) Suicidal Ideation: No Suicidal Plan: No Suicidal Intention: No Homicidal Ideation: No Homicidal Plan: No Homicidal Intention: No Insight: Poor Judgment: Poor Assessment and Plan - Assessment (1) Dementia in other diseases classified elsewhere with behavioral disturbance Code(s): F02.81 - Dementia in other diseases classified elsewhere with behavioral disturbance Status: Acute (2) Other Alzheimer's disease Code(s): G30.8 - Other Alzheimer's disease; F02.80 - Dementia in other diseases classified elsewhere without behavioral disturbance Status: Acute - Plan Plan: Patient this time continues with baseline confusion, no aggressive behavior, no behavioral disturbances, no episodes of agitation recently. Patient compliant with treatment. Continue to monitor mood and behavior. Continue current treatment. Discharge planning a progress. Justification for Continued Inpatient Stay: At risk of further decompensation a lower level care. Request Healthcare Surrogate/Guardian Advocate?: Yes
[2018-07-06] MEDS: Insulin Detemir Inj 1,000 UNIT/10 ML Vial SQ SCH (20:48)
[2018-07-06] MEDS: QUEtiapine 100 MG Tablet PO SCH (20:48)
[2018-07-07] MEDS: QUEtiapine 25 MG Tablet PO SCH ×3 (08:27→17:05)
[2018-07-07] MEDS: lamoTRIgine 25 MG TABLET PO SCH (08:27)
--- NOTE | 2018-07-07 20:01 | P.PNPSY ---
Subjective Remarks: Patient seen for follow up, chart reviewed. Discussion with nursing staff reported patient no behavioral issues, has a compliant. Patient was found lying hospital bed noted become cooperative. Patient noted with very concrete responses. Patient states she slept well, adequate appetite or bowel movement. Patient denies any physical complaints at this time stating that his mood is "very well" denying feeling depressed, denies any suicidal homicidal ideations at this time. Review of Systems All other systems reviewed negative except as stated in HPI Mental Status Examination Appearance: Appropriate Consciousness: Asleep Orientation: Person (Vaguely) Motor Activity: Other (unable to determine at this time ) Speech: Unremarkable Language: Adequate Fund of Knowledge: Inadequate Attention and Concentration: Easily distracted Memory: Impaired Mood: Other (received two ETO last night , opens eyes and responds to his name ) Affect: Irritable Thought Process & Associations: Other (concrete) Thought Content: Bizarre thinking Hallucination Type: None Delusion Type: Paranoid (minimal) Suicidal Ideation: No Suicidal Plan: No Suicidal Intention: No Homicidal Ideation: No Homicidal Plan: No Homicidal Intention: No Insight: Poor Judgment: Poor Assessment and Plan - Assessment (1) Dementia in other diseases classified elsewhere with behavioral disturbance Code(s): F02.81 - Dementia in other diseases classified elsewhere with behavioral disturbance Status: Acute (2) Other Alzheimer's disease Code(s): G30.8 - Other Alzheimer's disease; F02.80 - Dementia in other diseases classified elsewhere without behavioral disturbance Status: Acute - Plan Plan: Patient with no recent behavioral disturbances, no episodes of agitation. Continue to monitor mood and behavior. Continue current treatment. Discharge planning a progress. Justification for Continued Inpatient Stay: At risk of further decompensation a lower level of care. Request Healthcare Surrogate/Guardian Advocate?: Yes
[2018-07-07] MEDS: QUEtiapine 100 MG Tablet PO SCH (20:33)
[2018-07-07] MEDS: Insulin Detemir Inj 1,000 UNIT/10 ML Vial SQ SCH (22:38)
[2018-07-08 06:16] VITALS: BP 156/78; PULSE 66; RESP 16; TEMP 98.2; O2SAT 98
[2018-07-08] MEDS: QUEtiapine 25 MG Tablet PO SCH ×2 (09:13→11:33)
[2018-07-08] MEDS: lamoTRIgine 25 MG TABLET PO SCH (09:13)
--- NOTE | 2018-07-10 21:52 | P.DSPSY ---
Psychiatry Discharge Summary Inpatient Psychiatric care?: Yes Advance Directives: Unknown Reason for Unknown:: Due to Patient Condition Mental Health Advance Directive: No Health Care Proxy: No - Admission Admission Date: June 26, 2018 20:40 - Admission Diagnosis (1) Dementia in other diseases classified elsewhere with behavioral disturbance Code(s): F02.81 - Dementia in other diseases classified elsewhere with behavioral disturbance Brief History: Patient is a 73-year-old white male known to us from multiple prior contacts related to his dementia and behavioral issues. Comes here again under [employer] act from his home. Patient has recent history of the past few weeks of increasing agitation and violence aggressiveness towards his and more now wandering from the house and night into busy traffic. Patient was seen in the ED behaviors out of control to the point where he needed DTO of Haldol and Ativan and Benadryl. At the present time patient sitting quietly in his Dorothea chair in the dayroom it appears she recognize me from prior contacts on a care for him in 2016. Patient is oriented only to self. He states he lives with his mother and father who have been for over 30 years. He is vague about living with his . He denies suicidality denies voices or visions. Denies alcohol use. Denies any misbehaving. I also talked with patient's will return marthafaina [phone] who verifies the above information. She states she and her 2 adult children and now investigating possible placement for her . She is willing to be healthcare surrogate guardian advocate. We did arrange to meet tomorrow morning at about 10 AM to further discuss diagnosis treatment medications and placement. If this time patient does meet criteria for involuntary hospitalization I will do first opinion request second opinion I feel he has no capacity we will ask for health care surrogate and guardian advocate. We will have the hospitalist consult will S will have PT consult will us Tobacco Use In Past 30 Days: No How Often Do You Have a Drink Containing Alcohol: Unable to Obtain Hospital Course: Patient is a 73-year-old white male known to us from multiple prior contacts related to his dementia and behavioral issues. Comes here again under [employer] act from his home. Patient has recent history of the past few weeks of increasing agitation and violence aggressiveness towards his and more now wandering from the house and night into busy traffic. Patient was resumed on medication regimen which he tolerated well with no notable adverse drug reactions. He was observed by staff not to have had any further behavioral disturbances, nor made any suicidal or homicidal ideation and able to reach and maintain stable mood during admission and was noted to participate with staff adequately. Patient was noted to continue with baseline confusion secondary to neurocognitive deficits. He required redirection during admission but able to maintain adequate behavioral control toward end of admission. Patient was noted to participate in self-care, engaged with staff and maintaining adequate hygiene. Patient reported feeling good and motivated to return back to the assisted living facility and to continue outpatient follow-up. Treatment team was able to set up outpatient follow-up appointments which patient can continue for continuity of care. Upon discharge patient stated feeling "good" reported feeling well with treatment, with planned transfer to assisted living facility upon discharge. Patient from a mental health perspective no longer met criteria for continued inpatient level of care. Patient denied any SI, HI, perceptual disturbances or delusions. Weighing the acute, chronic, and protective factors and based on the available evidence, I mail handlers supervisor to a reasonable degree of medical certainty that the patient is at low imminent risk of harm to self or others for mental illness as defined under the [place] act and his level of function is adequate as observed on the unit for planned level of outpatient care. Patient was counseled regarding warning signs for need to return to the psychiatric emergency room as part of the general safety plan. Patient advised to call 911 or go to nearest ED in case of emergency. Patient agrees with plan. - Discharge Discharge Date: 07/08/18 - Discharge Diagnosis (1) Dementia in other diseases classified elsewhere with behavioral disturbance Code(s): F02.81 - Dementia in other diseases classified elsewhere with behavioral disturbance Status: Acute Discharge Disposition: Assisted Living Facility - Discharge Instructions Discharge Diet: Heart Healthy Diet Activities You Can Perform: Weight Bearing As Tolerat - Discharge Time > 30 minutes Mental Status Examination Appearance: Appropriate Consciousness: Asleep Orientation: Person (Vaguely) Motor Activity: Normal gait Speech: Unremarkable Language: Adequate Fund of Knowledge: Inadequate Attention and Concentration: Easily distracted Memory: Impaired Mood: Appropriate Affect: Appropriate Thought Process & Associations: Linear, Other (concrete) Thought Content: Appropriate Hallucination Type: None Delusion Type: None Suicidal Ideation: No Suicidal Plan: No Suicidal Intention: No Homicidal Ideation: No Homicidal Plan: No Homicidal Intention: No Insight: Poor Judgment: Poor Discharge/Advance Care Plan - Results Vital Signs: Last Vital Signs Temp 98.2 F 07/08/18 06:15 Pulse 66 07/08/18 06:15 Resp 16 07/08/18 06:15 BP 156/78 H 07/08/18 06:15 Pulse Ox 98 07/08/18 06:15 Lab Results: Laboratory Results Hemoglobin A1c 9.6 % (4.3-6.0) H 06/27/18 07:52 Triglycerides 147 mg/dL (42-150) 06/27/18 07:52 Cholesterol 182 mg/dL (120-200) 06/27/18 07:52 LDL Cholesterol, Calc 117 mg/dL (0-99) H 06/27/18 07:52 HDL Cholesterol 35.3 mg/dL (40.0-60.0) L 06/27/18 07:52 TSH 1.880 uIU/mL (0.358-3.740) 06/26/18 13:00 Urine Culture Comments Culture indicated 06/27/18 17:30 Summary of Procedures: none Imaging: ITS Impressions Head CT 06/27/18 00:00 CONCLUSION: 1. Negative for acute process . Abdomen/Bladder Ultrasound 06/28/18 00:00 CONCLUSION: 1. Normal sonographic appearance the kidneys. 2. No evidence of hydronephrosis Toe X-Ray 06/28/18 00:00 CONCLUSION: No acute abnormality. Pending Results: None - Medications Number of antipsychotic medications at discharge: 1 - Discharge Care Plan Goals to Promote Your Health: * To prevent worsening of your condition and complications * To maintain your health at the optimal level Directions to Meet Your Goals: Take your medications as prescribed Follow your dietary instruction Follow activity as directed Keep your appointments as scheduled Take your immunizations and boosters as scheduled If your symptoms worsen call your PCP, if no PCP go to Urgent Care Center or Emergency Room For 10/05 questions related to your inpatient stay or results of tests pending at discharge, please contact Dr. Ambrosio Lockett MD at Smoking is Dangerous to Your Health. Avoid second hand smoking
== END 2018-07-08 15:25 ==
LOC: NEPC 12:34 → H250 20:40 → NEPJ 20:40 → H4EA 06-27 17:07 → H250 06-28 18:31
PROVIDERS: ADMIT Student in an Organized Health Care Education/Training Program; ATTEND Student in an Organized Health Care Education/Training Program